=== PATIENT | male | born 1965 | race Caucasian/White ===

== ENCOUNTER 2019-09-03 12:54 | Inpatient (IN) | payer BC, SELFPAY ==
[2019-09-03] VITALS (50 sets, daily range): BP systolic 86–111; BP diastolic 37–70; PULSE 0–86; RESP 14–24; TEMP 36.8; O2SAT 93–99; BMI 34.5
--- NOTE | 2019-09-03 13:16 | W.ED.NAVMDI ---
HPI - Nausea/Vomiting/Diarrhea General: Chief complaint: Nausea/Vomiting/Diarrhea Stated complaint: Nausea, diarrhea, dizzy, fatigue Time Seen by Provider: 09/03/19 13:16 History of Present Illness: HPI Narrative: Pt states for 3 days he has had diarrhea whenever he eats or drinks, and had a fever of 102 the other night. Denies any vomiting but has had nausea and anorexia, He feels weak overall and has fallen but not passed out, no chest pain MD elicited complaint: nausea, diarrhea and abdominal pain Onset (ago): day(s) (3) Description of vomiting: none Description of diarrhea: watery Associated nausea: Yes Associated abdominal pain: Yes Location of pain: RLQ and LLQ Pain consistency: constant Severity: moderate Quality: cramping Exacerbating factors: eating Relieving factors: none Associated symtoms: Reports fatigue, fevers/chills, loss of apetite, malaise, myalgias and nausea; Denies anxiety, chest pain, dysuria or headache(s) Review of Systems General: Reports: 10 or more systems reviewed and unremarkable except in HPI and below Const: Reports: fever, chills, body aches, change in appetite, fatigue and malaise ENMT: Denies: throat pain Card: Denies: chest pain or swelling of feet/ankles Resp: Denies: shortness of breath or productive cough GI: Reports: abdominal pain, nausea and diarrhea; Denies: vomiting, constipation or painful bowel movements : Denies: flank pain, difficulty urinating or painful urination Musc: Denies: back pain or extremity swelling Skin/Breast: Denies: rash Neuro: Denies: headache, numbness in extremities or weakness in extremities Psych: Denies: anxiety or depression PFSH ED PFSH: Medical History (Updated 09/03/19 @ 18:11 by Soraya Pedraza DO) CAD (coronary artery disease) Cardiomyopathy CHF (congestive heart failure) Dilated LV, last EF 35%, grade 2 diastolic dysfunction from 2016 HTN (hypertension) LV (left ventricular) mural thrombus Status post left heart catheterization Surgical History (Updated 09/03/19 @ 17:18 by Kaushal Morocho MD) S/P ICD (internal cardiac defibrillator) procedure S/P wrist surgery Family History Other CAD (coronary artery disease) Hypertension Social History Smoking and tobacco status: never smoked Physical Exam Const: COMMON NORMALS: no apparent distress and oriented x3 GENERAL APPEARANCE: cooperative; not in distress HENMT: COMMON NORMALS: normocephalic HEAD & SCALP: normal to inspection and normocephalic MOUTH: oral and palatal mucosa normal and lip normal THROAT: posterior oropharynx normal and tonsils normal Neck/C-Spine: COMMON NORMALS: full ROM, no lymphadenopathy, supple and no meningeal signs GENERAL: Yes normal visual inspection and Yes trachea midline Chest: COMMONS NORMALS: inspection of chest normal (has pacer defib in place) Resp: COMMON NORMALS: normal respiratory effort and clear to auscultation bilaterally EFFORT & INSPECTION: Yes able to speak in complete sentences and No respiratory distress AUSCULTATION: clear to auscultation bilaterally, no rales, no rhonchi and no wheezes Cardio: COMMON NORMALS: regular rate, regular rhythm, S1 normal heart sound, S2 normal heart sound and no murmurs RATE: regular rate RHYTHM: regular rhythm HEART SOUNDS: S1 normal and S2 normal PERIPHERAL PULSES: radial pulses present and dorsalis pedis pulses present GI: COMMON NORMALS: soft to palpation INSPECTION: Yes normal to inspection AUSCULTATION: Yes hypoactive bowel sounds PALPATION: Yes soft and Yes tender Details: LLQ and RLQ RECTAL EXAM: Yes deferred : COMMON NORMALS: Yes no CVA tenderness BLADDER/KIDNEY EXAM: Yes no CVA tenderness Back/Pelvis: COMMON NORMALS: no CVA tenderness Extremity: COMMON NORMALS: normal to inspection, full ROM, normal capillary refill, no calf tenderness and no pedal edema Neuro: COMMON NORMALS: oriented x3, CN's II-XII intact bilaterally, moves all extremities and no focal motor deficits MENINGEAL SIGNS: Yes no meningeal signs Skin: COMMON NORMALS: no rashes or lesions noted GENERAL SKIN EXAM: no rashes or lesions noted Course Vital Signs: Vital signs: Vital Signs Temperature 98.2 F 09/03/19 13:09 Pulse Rate 70 09/03/19 17:30 Respiratory Rate 16 09/03/19 17:30 Blood Pressure 95/52 09/03/19 17:30 Pulse Oximetry 95 09/03/19 17:30 MDM - Nausea/Vomiting/Diarrhea MDM Narrative: Medical decision making narrative: Pt is in acute renal failure with bun of 59 and Cr of 5.3, he has a lipase of 251. 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, pt is still hypotensive at 87/48 so he will need to go to icu and Dr Morocho agrees, we are continuing iv fluids Lab Data: Labs: Lab Results 09/03/19 09/03/19 09/03/19 Range/Units 13:35 13:35 13:35 WBC 5.3 (4.0-10.0) 10^3/ uL RBC 4.22 (4.1-5.3) 10^6/u L Hgb 13.9 (11.7-16.6) g/dL Hct 42.5 (42.0-52.0) % MCV 100.7 H (80-94) fL MCH 32.9 (28.0-34.0) pg MCHC 32.7 (30.0-36.0) g/dL RDW 14.8 (12.1-15.1) % Plt Count 198 (130-400) 10^3/c mm MPV 11.2 H (7.4-10.4) fL Neut % (Auto) 73.5 % Lymph % (Auto) 13.6 % [place] % (Auto) 11.7 % Eos % (Auto) 0.6 % Baso % (Auto) 0.2 % Neut # (Auto) 3.9 (1.8-7.7) 10^3/u L Lymph # (Auto) 0.7 L (0.8-4.8) 10^3/u L [place] # (Auto) 0.6 (0.2-0.9) 10^3/u L Eos # (Auto) 0.0 (0.0-0.8) 10^3/u L Baso # (Auto) 0.0 (0.0-0.1) 10^3/u L Nucleated RBC % (a uto) 0 % Nucleated RBCs # 0.0 /100WBC Sodium 131 L (136-145) mmol/L Potassium 3.8 (3.5-5.1) mmol/L Chloride 94 L (98-107) mmol/L Carbon Dioxide 19 L (22-29) mmol/L Anion Gap 21.8 H (5-19) BUN 59 H (6-20) mg/dL Creatinine 5.3 H (0.7-1.2) mg/dL GFR Calculation 11.3 L (90-130) mL/min Glucose 182 H (65-115) mg/dL Calculated Osmolal ity 275 L (285-295) mOsm/k g Lactate 2.0 (0.5-2.2) mmol/L Calcium 9.0 (8.5-10.5) mg/dL Phosphorus (2.5-4.5) mg/dL Magnesium (1.7-2.3) mg/dL Total Bilirubin 0.3 (0.15-1.2) mg/dL AST 26 (0-40) U/L ALT 27 (0-41) U/L Alkaline Phosphata se 53 (40-130) IU/L NT-Pro-B Natriuret Pep (0-125) pg/mL Total Protein 7.4 (6.6-8.7) g/dL Albumin 3.8 (3.5-5.2) g/dL Globulin 3.6 (1.3-4.6) g/dL Lipase 251 H (13-60) U/L Procalcitonin (0-0.5) ng/mL TSH (0.27-4.20) uIU/ mL 09/03/19 Range/Units 13:35 WBC (4.0-10.0) 10^3/ uL RBC (4.1-5.3) 10^6/u L Hgb (11.7-16.6) g/dL Hct (42.0-52.0) % MCV (80-94) fL MCH (28.0-34.0) pg MCHC (30.0-36.0) g/dL RDW (12.1-15.1) % Plt Count (130-400) 10^3/c mm MPV (7.4-10.4) fL Neut % (Auto) % Lymph % (Auto) % [place] % (Auto) % Eos % (Auto) % Baso % (Auto) % Neut # (Auto) (1.8-7.7) 10^3/u L Lymph # (Auto) (0.8-4.8) 10^3/u L [place] # (Auto) (0.2-0.9) 10^3/u L Eos # (Auto) (0.0-0.8) 10^3/u L Baso # (Auto) (0.0-0.1) 10^3/u L Nucleated RBC % (a uto) % Nucleated RBCs # /100WBC Sodium (136-145) mmol/L Potassium (3.5-5.1) mmol/L Chloride (98-107) mmol/L Carbon Dioxide (22-29) mmol/L Anion Gap (5-19) BUN (6-20) mg/dL Creatinine (0.7-1.2) mg/dL GFR Calculation (90-130) mL/min Glucose (65-115) mg/dL Calculated Osmolal ity (285-295) mOsm/k g Lactate (0.5-2.2) mmol/L Calcium (8.5-10.5) mg/dL Phosphorus 5.0 H (2.5-4.5) mg/dL Magnesium 2.6 H (1.7-2.3) mg/dL Total Bilirubin (0.15-1.2) mg/dL AST (0-40) U/L ALT (0-41) U/L Alkaline Phosphata se (40-130) IU/L NT-Pro-B Natriuret Pep 295 H (0-125) pg/mL Total Protein (6.6-8.7) g/dL Albumin (3.5-5.2) g/dL Globulin (1.3-4.6) g/dL Lipase (13-60) U/L Procalcitonin 7.03 H (0-0.5) ng/mL TSH 2.13 (0.27-4.20) uIU/ mL Imaging Data^: CT Abd/Pel: Radiologist's impression: [place] [address] CT Scan Report Signed Patient: Diane De Paz Jr #: [id number] : 1965Acct#:[id number] Age/Sex: 54 / MADM Date: 09/03/19 Loc: ERRoom/Bed: Attending Dr: Ordering Provider/Ordering MD: Soraya Pedraza DO Date of Service: 09/03/19 Procedure(s): CT abdomen pelvis w con* [id number] Accession Number(s): [id number] Report Number: [id number] WS: [id number] CT ABDOMEN AND PELVIS WITH CONTRAST HISTORY: Abdominal pain with nausea, vomiting and diarrhea. Fever. TECHNIQUE: Imaging performed of the abdomen and pelvis with IV contrast. Single phase imaging of the abdomen. Coronal and sagittal reformats are submitted. All CT scans at [facility] use at least one of these dose optimization techniques: automated exposure control; mA and/or kV adjustment per patient size (includes targeted exams where dose is matched to clinical indication); or iterative reconstruction. IV CONTRAST: Omnipaque 300; 95 mL IV. Oral contrast: No DLP: 1971.81 mGy.cm COMPARISON: 05/12/2014 Lower thorax: Lung bases are clear. Normal size heart. Soft tissue mass at the LEFT ventricle apex measures 3.8 x 2.0 cm and is most likely thrombus. May be an area of infarction. This was not present on the study of September 2014. No hiatal hernia. Liver/biliary system: Normal size with no intrahepatic dilatation. Gallbladder: Normally distended gallbladder with numerous stones. No adjacent wall thickening or pericholecystic fluid. Pancreas: Normal. Spleen: Normal spleen with granulomata. Adrenal glands: Normal. Right kidney: Normal. Left kidney: Normal. Aorta: Normal. Mild misting within the central mesentery. There are a few small lymph nodes. Unchanged since 05/12/2014. Lymphadenopathy: Small mesenteric lymph nodes measure less than a centimeter and unchanged since 05/12/2014. Lymph nodes are within the area of mesenteric diverticulitis. Free fluid: None. GI tract: Normal appendix. There is mild thickening of the descending and sigmoid colon Abdominal wall: Unremarkable abdominal wall. No hernia. Pelvis: Small bilateral inguinal hernias containing fat only. Bones: Unremarkable. CT/CT abdomen pelvis w con* [id number] IMPRESSION: 1. LEFT ventricular apical thrombus suspected. Recommend follow-up echocardiogram. 2. Mild stable mesenteric panniculitis. 3. Normal appendix. 4. Cholelithiasis. No evidence for acute cholecystitis. Dictated By:Kim Santoro DO Vascular: Radiologist's impression: [address] [address] Ultrasound Report Signed Patient: Diane De Paz Jr #: [id number] : 1965Acct#:[id number] Age/Sex: 54 / MADM Date: 09/03/19 Loc: ERRoom/Bed: Attending Dr: Ordering Provider/Ordering MD: Soraya Pedraza DO Date of Service: 09/03/19 Procedure(s): CV echo complete* [id number] Accession Number(s): [id number] Report Number: [id number] Diane De Paz Jr Age: 54 Gender: M : 1965 Exam Date: 09/03/2019 16:23 Ordering Phys: Soraya Pedraza DO Technologist: Shen Potter Exam Location: [facility] [place] Indication: THROMBUS LV APEX ON CT BP: 93 / 57 HR: 64 Rhythm: Sinus Technical Quality: Fair MEASUREMENTS (Male / Female) Normal Values 2D ECHO LV Diastolic Diameter PLAX 3.6 cm 4.2 - 5.9 / 3.9 - 5.3 cm LV Systolic Diameter PLAX 2.9 cm IVS Diastolic Thickness 0.9 cm 0.6 - 1.0 / 0.6 - 0.9 cm IVS Systolic Thickness 1.8 cm LVPW Diastolic Thickness 1.2 cm 0.6 - 1.0 / 0.6 - 0.9 cm LVPW Systolic Thickness 1.3 cm LVOT Diameter 2.0 cm LV Ejection Fraction 2D Teich 40.5 % LV Ejection Fraction MOD 2C 47.5 % LV Ejection Fraction 2C AL 48.3 % LA Diameter 4.2 cm LA Width 3.3 cm LA Height 4.0 cm RA Width 3.3 cm RA Height 4.3 cm Aorta at Sinotubular Diameter 3.0 cm M-MODE LV Diastolic Diameter MM 5.2 cm 4.2 - 5.9 / 3.9 - 5.3 cm LV Systolic Diameter MM 4.5 cm LV Ejection Fraction MM Teich 26.8 % IVS Diastolic Thickness MM 0.8 cm 0.6 - 1.0 / 0.6 - 0.9 cm IVS Systolic Thickness MM 1.5 cm LVPW Diastolic Thickness MM 1.2 cm 0.6 - 1.0 / 0.6 - 0.9 cm LVPW Systolic Thickness MM 1.7 cm RV Diastolic Diameter MM 1.1 cm Aortic Annulus Diameter 3.2 cm LA Ao Ratio MM 1.3 MV E Point Septal Separation 0.9 cm DOPPLER AV Peak Velocity 104.0 cm/s LVOT Peak Velocity 74.0 cm/s AV Area Cont Eq vti 2.0 cm squared AV Area Cont Eq pk 2.3 cm squared MV Area PHT 5.0 cm squared Mitral E to A Ratio 0.9 MV E' Velocity 8.0 cm/s Mitral E to MV E' Ratio 7.2 Mitral E to LV E' Lateral Ratio 7.7 Mitral E to LV E' Septal Ratio 6.8 TR Peak Velocity 181.0 cm/s TR Peak Gradient 13.1 mmHg TV Peak E Velocity 74.0 cm/s Right Atrial Pressure 3.0 mmHg Pulmonary Artery Systolic Pressu 16.1 mmHg PV Peak Velocity 111.0 cm/s FINDINGS Left Ventricle Normal left ventricular cavity size. Moderately decreased left ventricular systolic function. Left ventricular ejection fraction is estimated at 40 %. There appeared to be distal anterior septal , distal lateral and apical akinesis. There is 2 x 2 centimeter apical mass most consistent with thrombus visualized.. Right Ventricle The right ventricle is normal in size and function. Right Atrium The right atrium is normal in size. Left Atrium The left atrium is normal in size. Mitral Valve Structurally normal mitral valve without significant stenosis or prolapse. There is no mitral regurgitation. Aortic Valve Structurally normal aortic valve without significant sclerosis or stenosis. There is no aortic regurgitation. Tricuspid Valve Structurally normal tricuspid valve without significant stenosis or regurgitation. Pulmonary artery systolic pressure is normal. Pulmonic Valve Structurally normal pulmonic valve without significant stenosis. There is no pulmonic regurgitation. Pericardium Normal pericardium without effusion. Aorta Normal ascending aorta dimension. CONCLUSIONS 1-Normal left ventricular cavity size. Moderately decreased left ventricular systolic function. Left ventricular ejection fraction is estimated at 40 %. There appeared to be distal anterior septal distal lateral and apical akinesis. There is 2 x 2 centimeter apical mass most consistent with thrombus visualized.. 2-There is no pericardial effusion. 3-No significant valve abnormalities. 4-Pulmonary artery systolic pressure is within normal limits. 5-Right atrial pressure is around 5 mm of mercury. 6-when compared to the prior echocardiogram dated 07/14/2014 there appeared to be apical left ventricle thrombus now Ilia Valero MD (Electronically Signed) Final Date: 03 Sep 2019 17:24 S Discharge Plan Discharge Patient Disposition: Admitted As Inpatient Admit Provider: Kaushal Morocho Clinical Impression: Acute kidney injury, Gastroenteritis, Dehydration, Mesenteric panniculitis, Acute hypotension Pancreatitis, acute Qualifiers: Pancreatitis type: unspecified pancreatitis type Acute pancreatitis complication: no infection or necrosis Qualified Code(s): K85.90 - Acute pancreatitis without necrosis or infection, unspecified Condition: Stable Referrals: Ilia Valero MD [Primary Care Provider] - Coding Level of Care Code ED Speech And Language Specialist for Chg Fwd Exam Comprehensive
--- NOTE | 2019-09-03 13:24 | CT_ITS ---
WS: [id number] CT ABDOMEN AND PELVIS WITH CONTRAST HISTORY: Abdominal pain with nausea, vomiting and diarrhea. Fever. TECHNIQUE: Imaging performed of the abdomen and pelvis with IV contrast. Single phase imaging of the abdomen. Coronal and sagittal reformats are submitted. All CT scans at [facility] use at least one of these dose optimization techniques: automated exposure control; mA and/or kV adjustment per patient size (includes targeted exams where dose is matched to clinical indication); or iterativ e reconstruction. IV CONTRAST: Omnipaque 300; 95 mL IV. Oral contrast: No DLP: 1971.81 mGy.cm COMPARISON: 05/12/2014 Lower thorax: Lung bases are clear. Normal size heart. Soft tissue mass at the LEFT ventricle apex me asures 3.8 x 2.0 cm and is most likely thrombus. May be an area of infarction. This was not present o n the study of September 2014. No hiatal hernia. Liver/biliary system: Normal size with no intrahepatic dilatation. Gallbladder: Normally distended gallbladder with numerous stones. No adjacent wall thickening or raoul cholecystic fluid. Pancreas: Normal. Spleen: Normal spleen with granulomata. Adrenal glands: Normal. Right kidney: Normal. Left kidney: Normal. Aorta: Normal. Mild misting within the central mesentery. There are a few small lymph nodes. Unchanged since 5. Lymphadenopathy: Small mesenteric lymph nodes measure less than a centimeter and unchanged since 2014. Lymph nodes are within the area of mesenteric diverticulitis. Free fluid: None. GI tract: Normal appendix. There is mild thickening of the descending and sigmoid colon Abdominal wall: Unremarkable abdominal wall. No hernia. Pelvis: Small bilateral inguinal hernias containing fat only. Bones: Unremarkable. CT/CT abdomen pelvis w con* [id number] IMPRESSION: 1. LEFT ventricular apical thrombus suspected. Recommend follow-up echocardiog benito. 2. Mild stable mesenteric panniculitis. 3. Normal appendix. 4. Cholelithiasis. No evidence for acute cholecystitis.
[2019-09-03] MEDS: ondansetron 2 mg/ML SDV 2 mL 4 MG IVP (13:33)
[2019-09-03] MEDS: sodium chloride 0.9% 1,000 ML 999 ML IV ×2 (13:33→17:26)
[2019-09-03 13:51] LABS: Basophils % 0.2 %; Eosinophils % 0.6 %; Hematocrit 42.5 % (42.0-52.0); Hemoglobin 13.9 g/dL (11.7-16.6); Lymphocytes # 0.7 10^3/uL (0.8-4.8); Lymphocytes % 13.6 %; Mean Corpuscular HGB Conc 32.7 g/dL (30.0-36.0); Mean Corpuscular Hemoglobin 32.9 pg (28.0-34.0); Mean Corpuscular Volume 100.7 fL (80-94); Mean Platelet Volume 11.2 fL (7.4-10.4); Monocytes # 0.6 10^3/uL (0.2-0.9); Monocytes % 11.7 %; Neutrophils # 3.9 10^3/uL (1.8-7.7); Neutrophils % 73.5 %; Nucleated Red Blood Cells % 0 %; Platelet Count 198 10^3/cmm (130-400); Red Blood Count 4.22 10^6/uL (4.1-5.3); Red Cell Distribution Width 14.8 % (12.1-15.1); White Blood Count 5.3 10^3/uL (4.0-10.0)
[2019-09-03] MEDS: iohexol 300 mg/mL 100 mL Btl IV (14:05)
[2019-09-03 14:15] LABS: Alanine Aminotransferase 27 U/L (0-41); Albumin Level 3.8 g/dL (3.5-5.2); Alkaline Phosphatase 53 IU/L (40-130); Anion Gap 21.8 (5-19); Aspartate Amino Transferase 26 U/L (0-40); Blood Urea Nitrogen 59 mg/dL (6-20); Carbon Dioxide 19 mmol/L (22-29); Chloride 94 mmol/L (98-107); Globulin 3.6 g/dL (1.3-4.6); Glomerular Filtration Rate 11.3 mL/min (90-130); Glucose 182 mg/dL (65-115); Lipase 251 U/L (13-60); Osmolality Calculated 275 mOsm/kg (285-295); Potassium 3.8 mmol/L (3.5-5.1); Sodium 131 mmol/L (136-145); Total Bilirubin 0.3 mg/dL (0.15-1.2); Total Protein 7.4 g/dL (6.6-8.7)
[2019-09-03 14:20] LABS: Slide Review Slide Review Perform
--- NOTE | 2019-09-03 16:02 | USCV_ITS ---
Diane De Paz Jr Age: 54 Gender: M : 1965 Exam Date: 09/03/2019 16:23 Ordering Phys: Soraya Pedraza DO Technologist: Shen Potter Exam Location: [facility] [place] Indication: THROMBUS LV APEX ON CT BP: 93 / 57 HR: 64 Rhythm: Sinus Technical Quality: Fair MEASUREMENTS (Male / Female) Normal Values 2D ECHO LV Diastolic Diameter PLAX 3.6 cm 4.2 - 5.9 / 3.9 - 5.3 cm LV Systolic Diameter PLAX 2.9 cm IVS Diastolic Thickness 0.9 cm 0.6 - 1.0 / 0.6 - 0.9 cm IVS Systolic Thickness 1.8 cm LVPW Diastolic Thickness 1.2 cm 0.6 - 1.0 / 0.6 - 0.9 cm LVPW Systolic Thickness 1.3 cm LVOT Diameter 2.0 cm LV Ejection Fraction 2D Teich 40.5 % LV Ejection Fraction MOD 2C 47.5 % LV Ejection Fraction 2C AL 48.3 % LA Diameter 4.2 cm LA Width 3.3 cm LA Height 4.0 cm RA Width 3.3 cm RA Height 4.3 cm Aorta at Sinotubular Diameter 3.0 cm M-MODE LV Diastolic Diameter MM 5.2 cm 4.2 - 5.9 / 3.9 - 5.3 cm LV Systolic Diameter MM 4.5 cm LV Ejection Fraction MM Teich 26.8 % IVS Diastolic Thickness MM 0.8 cm 0.6 - 1.0 / 0.6 - 0.9 cm IVS Systolic Thickness MM 1.5 cm LVPW Diastolic Thickness MM 1.2 cm 0.6 - 1.0 / 0.6 - 0.9 cm LVPW Systolic Thickness MM 1.7 cm RV Diastolic Diameter MM 1.1 cm Aortic Annulus Diameter 3.2 cm LA Ao Ratio MM 1.3 MV E Point Septal Separation 0.9 cm DOPPLER AV Peak Velocity 104.0 cm/s LVOT Peak Velocity 74.0 cm/s AV Area Cont Eq vti 2.0 cm squared AV Area Cont Eq pk 2.3 cm squared MV Area PHT 5.0 cm squared Mitral E to A Ratio 0.9 MV E' Velocity 8.0 cm/s Mitral E to MV E' Ratio 7.2 Mitral E to LV E' Lateral Ratio 7.7 Mitral E to LV E' Septal Ratio 6.8 TR Peak Velocity 181.0 cm/s TR Peak Gradient 13.1 mmHg TV Peak E Velocity 74.0 cm/s Right Atrial Pressure 3.0 mmHg Pulmonary Artery Systolic Pressu 16.1 mmHg PV Peak Velocity 111.0 cm/s FINDINGS Left Ventricle Normal left ventricular cavity size. Moderately decreased left ventricular systolic function. Left ventricular ejection fraction is estimated at 40 %. There appeared to be distal anterior septal , distal lateral and apical akinesis. There is 2 x 2 centimeter apical mass most consistent with thrombus visualized.. Right Ventricle The right ventricle is normal in size and function. Right Atrium The right atrium is normal in size. Left Atrium The left atrium is normal in size. Mitral Valve Structurally normal mitral valve without significant stenosis or prolapse. There is no mitral regurgitation. Aortic Valve Structurally normal aortic valve without significant sclerosis or stenosis. There is no aortic regurgitation. Tricuspid Valve Structurally normal tricuspid valve without significant stenosis or regurgitation. Pulmonary artery systolic pressure is normal. Pulmonic Valve Structurally normal pulmonic valve without significant stenosis. There is no pulmonic regurgitation. Pericardium Normal pericardium without effusion. Aorta Normal ascending aorta dimension. CONCLUSIONS 1-Normal left ventricular cavity size. Moderately decreased left ventricular systolic function. Left ventricular ejection fraction is estimated at 40 %. There appeared to be distal anterior septal distal lateral and apical akinesis. There is 2 x 2 centimeter apical mass most consistent with thrombus visualized.. 2-There is no pericardial effusion. 3-No significant valve abnormalities. 4-Pulmonary artery systolic pressure is within normal limits. 5-Right atrial pressure is around 5 mm of mercury. 6-when compared to the prior echocardiogram dated 07/14/2014 there appeared to be apical left ventricle thrombus now Ilia Valero MD (Electronically Signed) Final Date: 03 Sep 2019 17:24 S
--- NOTE | 2019-09-03 17:15 | P.HP_ITS ---
Providers/Chief Complaint Primary Care Provider: Ilia Valero MD Chief Complaint: knee pain History of Present Illness Diane De Paz Jr is a 54 year old male with past medical history of hypertension, hyperlipidemia, morbid obesity, CAD, cardiomyopathy, congestive heart failure of diastolic and systolic type, post AICD implantation came into the ER today because of feeling weak and dizziness. Patient states he has been having runny nose, flulike symptoms for last 1 week along with fever going up to 102 Fahrenheit a week ago. Patient states for this he was seen at [facility] and flu a and B was tested and was negative. For last 3 days he has been having abdominal pain along with nausea but no vomiting and multiple episodes of diarrhea for last 3 days. He has been feeling weak, dizziness since last night but symptoms persisted so he presented to the ER. Symptoms are also associated with generalized abdominal pain. Fever associated with chills and is usually intermittent. Bowel movement were watery till today morning but are now semi- formed. He also has noticed blood once in his bowel movement yesterday but if not present anymore today. He denies of having any hematemesis, dysuria, dizziness, headache, difficulty breathing, palpitations. 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 He denies of having traveled recently outside [place] in last 2 months. In the ER and presentation he was found to have hypotension with blood pressure going into 80 systolic so IV fluid was given and his blood pressure improved to [address] abdomen was done which was consistent with mesenteric pancolitis but was also consistent with a possible LV thrombus. Blood work done showed hyponatremia with creatinine of 5.3 and he was in metabolic acidosis. Review of Systems Const: Reports: fever, chills, body aches and malaise; Denies: change in appetite, night sweats, diaphoresis, change in sleep pattern, daytime sleepiness or snoring Eyes: Denies: change in vision, blurry vision, photophobia, eye discomfort or eye discharge ENMT: Denies: throat pain, enlarged tonsils, hoarseness, mouth pain, oral sores/lesions, dry mouth, tinnitus, nasal congestion or post nasal drip Card: Reports: palpitations; Denies: chest pain, irregular heart rhythm, edema, swelling of feet/ankles, lightheadedness, syncope, pre-syncope, shortness of breath on exertion, shortness of breath when lying down, leg pain with exertion or bluish discoloration of hands/feet Resp: Reports: non-productive cough; Denies: shortness of breath, productive cough, wheezing, stridor, pain on inspiration, change in phlegm color, coughing up blood or chest congestion GI: Reports: abdominal pain, nausea and diarrhea; Denies: vomiting, vomiting blood, coffee grounds in vomit, difficulty swallowing, heartburn/indigestion, constipation, bloating, cramping, change in bowel habits, painful bowel movements, blood in stool or black tarry stool : Denies: flank pain, difficulty urinating, painful urination, urinary frequency, urinary urgency, urinary hesitancy, urinary dribbling, difficulty starting urination, change in urine stream, nighttime urination or blood in urine Musc: Denies: neck pain, back pain, extremity pain, joint pain, joint swelling, redness, joint stiffness or limited range of motion Neuro: Denies: headache, numbness in extremities, weakness in extremities, changes in sensation, lack of coordination, difficulty walking, frequent falls, dizziness, vertigo, confusion, slurred speech, difficulty communicating thoughts or seizure-like activity Psych: Denies: anxiety, depression, mood swings, panic attacks, hopelessness or irritability Endo: Denies: excessive urination, excessive thirst, tired all the time, cold intolerance, excessive sweating, flushing or heat intolerance Charan/Lymph: Denies: easy bruising or easy bleeding All/Imm: Denies: tongue swelling, facial swelling or acute wheezing Medications/Allergies Home Medications Medication Instructions Recorded Confirmed Last Taken Type aspirin 325 mg tablet 325 mg PO DAILY 07/09/19 07/09/19 Unknown History carvedilol 25 mg tablet 37.5 mg PO BID tab 07/09/19 07/09/19 Unknown History nitroglycerin 0.4 mg sublingual 0.4 mg SUBLINGUAL Q5M PRN 07/09/19 07/09/19 Unknown History tablet potassium chloride 10 mEq 10 meq PO DAILY 07/09/19 07/09/19 Unknown History tablet,extended release(part/cryst) simvastatin 40 mg tablet 40 mg PO DAILY 07/09/19 07/09/19 Unknown History furosemide 20 mg tablet 20 mg PO DAILY #90 tab 08/20/19 Unknown Rx lisinopril 20 mg tablet 20 mg PO DIRECTED 90 Days #135 08/24/19 Unknown Rx tab Allergies Allergy/AdvReac Type Severity Reaction Status Date / Time No Known Allergies Allergy Unverified 07/09/19 07:58 PFSH Acute PFSH: Medical History (Updated 09/03/19 @ 18:03 by Kaushal Morocho MD) CAD (coronary artery disease) Cardiomyopathy CHF (congestive heart failure) Dilated LV, last EF 35%, grade 2 diastolic dysfunction from 2016 HTN (hypertension) LV (left ventricular) mural thrombus Status post left heart catheterization Surgical History (Updated 09/03/19 @ 17:18 by Kaushal Morocho MD) S/P ICD (internal cardiac defibrillator) procedure S/P wrist surgery Family History Other CAD (coronary artery disease) Hypertension Social History Smoking and tobacco status: never smoked Vitals/I&O/Wt Last Vital Signs Temp 98.2 F 09/03/19 13:09 Pulse 65 09/03/19 15:05 Resp 16 09/03/19 15:05 BP 93/37 09/03/19 15:05 Pulse Ox 98 09/03/19 15:05 Weight last 48 hrs Weight 115.666 kg Physical Exam Narrative: EXAM NARRATIVE: General: No acute distress, AO x3, morbidly obese, dehydrated HEENT: PERRLA, pupils bilaterally equal and reactive Chest: Normal vesicular breath sounds, no added sounds, equal good air entry bilaterally, fine crackles present bilateral bases CVS: S1-S2 regular, pansystolic murmur at the apex, no tachycardia, no gallops, no rubs Abdomen: Soft, nontender, no organomegaly, bowel sounds present Neuro: No focal deficits, no facial deformity, AO x3, power 5/5 in all limbs Data : 09/03/19 13:35 09/03/19 13:35 Micro: Microbiology 09/03/19 13:40 Blood Culture - Preliminary Blood SPECIMEN COLLECTED 09/03/19 13:35 Blood Culture - Preliminary Blood SPECIMEN COLLECTED A&P Assessment and plan (1) Shock: Status: Acute (2) Acute hypotension: Status: Acute (3) LV (left ventricular) mural thrombus: Status: Acute (4) Mesenteric panniculitis: Status: Acute (5) Dehydration: Status: Acute (6) Gastroenteritis: Status: Acute (7) Acute kidney injury: Status: Acute (8) Cardiomyopathy: Status: Acute (9) S/P ICD (internal cardiac defibrillator) procedure: Status: Acute (10) HTN (hypertension): Status: Acute (11) CAD (coronary artery disease): Status: Acute Additional A&P Information Shock: Most likely because of hypovolemia versus possible sepsis. Patient is tachycardic, hypotensive with organ dysfunction. Admit to ICU. Echocardiogram shows compressible IVC. Normal saline at 75 cc/h. Keep mean arterial pressure over 65 mmHg. Blood cultures, MRSA swab, stool studies to rule out C. difficile, enteric panel. Ciprofloxacin and Flagyl both renally dosed. If patient persistently remains hypotensive or has high-grade fever will add on vancomycin. Check stool studies to rule out C. difficile, enteric panel. Given the symptoms cannot rule out COVID-19. Will check for the same. Isolation for now. Cardiomyopathy: Compensated systolic and diastolic congestive heart failure: We will monitor closely for hypotension, fluid overload. We will hold off on home dose of lisinopril, Lasix, carvedilol for now. We will put on IV Lopressor 5 mg every 6 hours as needed for heart rate of more than 110 bpm when systolic blood pressure is more than 110 mmHg. LV thrombus: Patient is not aware of of the same. As his creatinine is elevated we will start him on heparin drip without bolus. Patient would most likely need to be bridged over to anticoagulation at least for 6 months. We will consult cardiology for further assistance. MIHAELA: Most likely because of severe dehydration because of diarrhea, sepsis and patient being on Lasix and lisinopril. Will Mayen catheterized for strict input output charting. Medical reconciliation done for nephrotoxic drugs. Check urine electrolytes, urine creatinine, urine eosinophils. We will check BMP daily. Metabolic acidosis: Most likely because of severe MIHAELA. We will try to correct the underlying problem and continue to monitor. Patient does not need any bicarb for now. Heparin drip. Full code. Cardiac diet, low-salt diet. Admit to ICU. Attestations Medical Necessity Statement*: More than 2 midnights for shock, severe diarrhea, LV thrombus, MIHAELA Critical Care Time: Critical Care Time (min): 80 Coding Level of Care Code Acute Machine Heel Seat Fitter for Chg Fwd Diagnoses Shock R57.9 Acute hypotension I95.9 LV (left ventricular) mural thrombus I51.3 Mesenteric panniculitis K65.4 Dehydration E86.0 Gastroenteritis K52.9 Acute kidney injury N17.9 Cardiomyopathy I42.9 S/P ICD (internal cardiac defibrillator) procedure Z95.810 HTN (hypertension) I10 CAD (coronary artery disease) I25.10
[2019-09-03] MEDS: famotidine 20 mg/2 mL INJ IVP (17:27)
[2019-09-03] MEDS: metroNIDAZOLE IV 500 MG/100 ML PREMIX 100 MG IV (17:28)
[2019-09-03 17:56] LABS: Magnesium 2.6 mg/dL (1.7-2.3); NT Pro B Type Natriuretic Pept 295 pg/mL (0-125); Thyroid Stimulating Hormone 2.13 uIU/mL (0.27-4.20)
[2019-09-03 18:33] LABS: Glucose Urine UA Norm (Normal); Ketones Urine Negative (Negative); Protein Urine Neg (Negative); Specific Gravity, Urine 1.015 (1.005-1.030); Urine Appearance Clear (CLEAR); Urine Color Yellow (Yellow); pH Urine 5 (5-7)
[2019-09-03 18:34] LABS: Bilirubin Urine Neg (NEGATIVE); Blood Urine Neg (Negative); Leukocyte Esterase Urine Negative (Negative); Nitrate Urine Negative (Negative); Urobilinogen Urine Norm (Negative)
[2019-09-03 19:17] LABS: Procalcitonin 7.03 ng/mL (0-0.5)
--- NOTE | 2019-09-03 21:00 | PC.NURSE ---
2100 [facility] monitoring done at tis time. svi change is 22.1% svi 51 ci 3.8 hr 70 . pt vss per cm. pt denies sob or distress. elsy.
[2019-09-03] MEDS: sodium chloride 0.9% 1,000 ML 75 ML IV (21:03)
--- NOTE | 2019-09-03 22:02 | PC.NURSE ---
Addendum entered by Genoveva Fraser RN 09/04/19 00:44: pt refuses agrawal placement , pt is also ambulatory andwill be on heparin gtt for vte scds not placed at this time for pt comfort. Original Note: 2038 rcvd pt via wc from ed. pt a&o x 4 answers admit questions appropriately . vss per cm. pt denies pain. reports diarrhea for a few days . pt denies nausea at this time. nicom testing done at tis time . 20 ga piv to right ac c ns @ 75 cc/hr 20 ga piv started to right hand . pt tolerated c no complaints. pt has multiple scraches , cuts, and bruises on upper and lower ext [place]. assessment per flowsheet. Blade fraser.
[2019-09-03 22:28] LABS: Partial Thromboplastin Time 29.7 SECONDS (23.9-36.7)
[2019-09-03 22:31] LABS: INR 1.13 (0.8-1.2)
[2019-09-03] MEDS: heparin drip 25,000 UNIT/500 ML PREMIX 32.4 UNIT IV (22:47)
--- NOTE | 2019-09-03 23:12 | PC.NURSE ---
heparin gtt started per md order. order for ptt at 0500 . stool sent to lab simon varghese.
[2019-09-04] VITALS (63 sets, daily range): BP systolic 93–145; BP diastolic 49–79; PULSE 65–92; RESP 13–25; TEMP 36.5–36.8; O2SAT 93–98; BMI 34.5
--- NOTE | 2019-09-04 01:16 | PC.NURSE ---
pt oob at this time to bsc. 1000 cc dark green foul smelling liquid stool noted. pt voided c stool unable to collect urine specimen . elsy
[2019-09-04] MEDS: famotidine 20 mg/2 mL INJ IVP ×2 (04:45→17:08)
[2019-09-04] MEDS: sodium chloride 0.9% 1,000 ML 75 ML IV (04:46)
[2019-09-04] MEDS: metroNIDAZOLE IV 500 MG/100 ML PREMIX 100 MG IV ×3 (04:46→19:54)
[2019-09-04 05:24] LABS: Eosinophils % 0.5 %; Hematocrit 36.6 % (42.0-52.0); Hemoglobin 12.5 g/dL (11.7-16.6); Lymphocytes # 1.2 10^3/uL (0.8-4.8); Lymphocytes % 22.2 %; Mean Corpuscular HGB Conc 34.2 g/dL (30.0-36.0); Mean Corpuscular Hemoglobin 34.2 pg (28.0-34.0); Mean Platelet Volume 10.2 fL (7.4-10.4); Monocytes # 0.8 10^3/uL (0.2-0.9); Monocytes % 14.3 %; Neutrophils # 3.5 10^3/uL (1.8-7.7); Neutrophils % 62.6 %; Nucleated Red Blood Cells % 0 %; Platelet Count 203 10^3/cmm (130-400); Red Blood Count 3.66 10^6/uL (4.1-5.3); Red Cell Distribution Width 14.6 % (12.1-15.1); White Blood Count 5.6 10^3/uL (4.0-10.0)
[2019-09-04 05:39] LABS: Partial Thromboplastin Time 67.3 SECONDS (23.9-36.7)
[2019-09-04 05:51] LABS: Alanine Aminotransferase 22 U/L (0-41); Albumin Level 3.4 g/dL (3.5-5.2); Alkaline Phosphatase 51 IU/L (40-130); Anion Gap 19.7 (5-19); Aspartate Amino Transferase 22 U/L (0-40); Blood Urea Nitrogen 53 mg/dL (6-20); Calcium 8.6 mg/dL (8.5-10.5); Carbon Dioxide 16 mmol/L (22-29); Chloride 103 mmol/L (98-107); Globulin 3.7 g/dL (1.3-4.6); Glomerular Filtration Rate 23.6 mL/min (90-130); Glucose 124 mg/dL (65-115); Osmolality Calculated 280 mOsm/kg (285-295); Potassium 3.7 mmol/L (3.5-5.1); Sodium 135 mmol/L (136-145); Total Bilirubin 0.3 mg/dL (0.15-1.2); Total Protein 7.1 g/dL (6.6-8.7)
[2019-09-04 07:44] LABS: Add Urine Microscopic? YES
[2019-09-04 08:04] LABS: Potassium, Radom Urine 31 mmol/L; Urine Creatinine 339 mg/dL (39-259)
[2019-09-04 08:08] LABS: Bacteria Urine 1+; Calcium Oxalate Crystals Urine 0-4 /hpf; Hyaline Casts Urine RARE; Other Crystals Urine TALC /hpf; WBC Urine 0-4 /hpf (0-5)
[2019-09-04 08:09] LABS: Add Urine Culture? No
[2019-09-04 08:19] LABS: Urine Random Sodium 16 mmol/L
[2019-09-04 08:36] LABS: Urine Random Chloride < 20 mmol/L
[2019-09-04] MEDS: atorvastatin 40 mg Tablet 20 MG PO (09:33)
[2019-09-04] MEDS: aspirin 325 mg Tablet PO (09:33)
[2019-09-04] MEDS: ciprofloxacin 400 MG/200 ML PREMIX 200 MG IV ×2 (09:34→22:35)
--- NOTE | 2019-09-04 09:45 | PM.PN ---
Subjective Subjective: Interval history: No acute events overnight. Patient has had only 1 episodes of diarrhea since admission. Sitting comfortably in bed. Denies having any nausea, vomiting, headache, palpitations. Labs, vitals noted. COVID-19 testing pending. Vitals/I&O/Wt Last Vital Signs Temp 98.2 F 09/03/19 13:09 Pulse 72 09/04/19 08:00 Resp 17 09/04/19 08:00 BP 114/69 09/04/19 08:00 Pulse Ox 97 09/04/19 08:00 09/03/19 09/04/19 09/04/19 22:59 06:59 14:59 Intake Total 2100 / 2100 1078.75 / 3178.75 240 / 240 Output Total 500 / 500 2500 / 3000 300 / 300 Balance 1600 / 1600 -1421.25 / 178.75 -60 / -60 Weight last 48 hrs Weight 115.666 kg Weight 115.666 kg Physical Exam Narrative: EXAM NARRATIVE: General: No acute distress, AO x3, morbidly obese, dehydrated HEENT: PERRLA, pupils bilaterally equal and reactive Chest: Normal vesicular breath sounds, no added sounds, equal good air entry bilaterally, fine crackles present bilateral bases CVS: S1-S2 regular, pansystolic murmur at the apex, no tachycardia, no gallops, no rubs Abdomen: Soft, nontender, no organomegaly, bowel sounds present Neuro: No focal deficits, no facial deformity, AO x3, power 5/5 in all limbs Data : 09/04/19 04:54 09/04/19 04:54 Micro: Microbiology 09/03/19 23:16 Occult Blood (FIT) - Final Stool 09/03/19 23:16 Stool Lactoferrin - Final Stool 09/03/19 13:40 Blood Culture - Preliminary Blood SPECIMEN COLLECTED 09/03/19 13:35 Blood Culture - Preliminary Blood SPECIMEN COLLECTED A&P Assessment and plan (1) Campylobacter enteritis: Status: Acute (2) Shock: Status: Acute (3) Acute hypotension: Status: Acute (4) LV (left ventricular) mural thrombus: Status: Acute (5) Mesenteric panniculitis: Status: Acute (6) Dehydration: Status: Acute (7) Acute kidney injury: Status: Acute (8) Cardiomyopathy: Status: Acute (9) S/P ICD (internal cardiac defibrillator) procedure: Status: Acute (10) HTN (hypertension): Status: Acute (11) CAD (coronary artery disease): Status: Acute Additional A&P Information Shock: Most likely because of hypovolemia versus possible sepsis. Resolved. Patient is tachycardic, hypotensive with organ dysfunction. Keep mean arterial pressures over 65. Continue with normal saline at 75 cc/h for now. Gastroenteritis/mesenteric panniculitis: Stool studies consistent with Campylobacter. Discussed with the patient and family that they need to get well water checked which they consume at home for possible contamination. For now continue with ciprofloxacin and Flagyl at current dose. Given the symptoms cannot rule out COVID-19. Will check for the same. Isolation for now. Cardiomyopathy: Post AICD. Compensated systolic and diastolic congestive heart failure: Echocardiogram done yesterday shows an EF of 40% with regional wall motion abnormality and presence of 2 x 2 centimeter apical LV thrombus. For now continue holding off on lisinopril, Lasix, carvedilol as his blood pressures are still on the softer side. Continue to monitor for fluid overload, hypotension. LV thrombus: Patient is not aware of of the same. Continue with heparin drip keeping his PTT between 65 and 80. Once creatinine becomes even more better can plan to transition home to [place]. Dr. Valero's recommendations greatly appreciated.. MIHAELA: Most likely because of severe dehydration because of diarrhea, sepsis and patient being on Lasix and lisinopril. Trending down. 2.8 today. FeNa?0.2% which is consistent with prerenal. Continue trend daily. Metabolic acidosis: Most likely because of severe MIHAELA. We will try to correct the underlying problem and continue to monitor. Patient does not need any bicarb for now. Heparin drip. Full code. Cardiac diet, low-salt diet. Continue with ICU care for now. Once COVID-19 test comes back negative can plan to transfer to cardiac stepdown unit. Attestations Medical Necessity Statement*: Campylobacter gastroenteritis, resolving shock, LV thrombus Critical Care Time: Critical Care Time (min): 70 Coding Level of Care Code Acute Interior Decorator Paperhanging for [facility] Fwd Diagnoses Campylobacter enteritis A04.5 Shock R57.9 Acute hypotension I95.9 LV (left ventricular) mural thrombus I51.3 Mesenteric panniculitis K65.4 Dehydration E86.0 Acute kidney injury N17.9 Cardiomyopathy I42.9 S/P ICD (internal cardiac defibrillator) procedure Z95.810 HTN (hypertension) I10 CAD (coronary artery disease) I25.10
[2019-09-04 12:11] LABS: Partial Thromboplastin Time 175.9 SECONDS (23.9-36.7)
[2019-09-04 15:14] LABS: Partial Thromboplastin Time 37.4 SECONDS (23.9-36.7)
--- NOTE | 2019-09-04 15:36 | PC.NURSE ---
here at this time due to covid restrictions no visitors in hospital called him from her cell phone saying that we had a little kid back here and a man. 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
--- NOTE | 2019-09-04 16:00 | P.CONIM_ITS ---
Providers/Reason For Consult Consulting Physican/Specialty*: Cardiology Reason for Consult*: Newly thrombus Requesting Physcian: Kaushal Morocho MD Attending Physician: Kaushal Morocho MD Primary Care Provider: Ilia Valero MD History of Present Illness History of Present Illness Diane De Paz Jr is a 54 year old male was admitted with nausea vomiting diarrhea Hypotension and flulike symptoms. CT scan was suspicious regarding left ventricle thrombosis which was later confirmed with echocardiogram. Patient had history of coronary artery disease, cardiomyopathy systolic heart failure. When compared to the prior echocardiogram LV thrombus is new. Please note that I have not personally examine the patient since he is on COVID precaution History and physical examination was through nursing staff and Dr. Mendez. Patient was started on IV fluid and antibiotic for the diarrhea. He is being ruled out for COVID, test is pending. Review of Systems General: Reports: 10 or more systems reviewed and unremarkable except in HPI and below Const: Reports: fever, chills, body aches, fatigue and malaise; Denies: change in appetite, night sweats, diaphoresis, change in sleep pattern, daytime sleepiness or snoring Eyes: Denies: change in vision, blurry vision, photophobia, eye discomfort or eye discharge ENMT: Denies: throat pain, enlarged tonsils, hoarseness, mouth pain, oral sores/lesions, dry mouth, tinnitus, nasal congestion or post nasal drip Card: Reports: palpitations; Denies: chest pain, irregular heart rhythm, edema, swelling of feet/ankles, lightheadedness, syncope, pre-syncope, shortness of breath on exertion, shortness of breath when lying down, leg pain with exertion or bluish discoloration of hands/feet Resp: Reports: non-productive cough; Denies: shortness of breath, productive cough, wheezing, stridor, pain on inspiration, change in phlegm color, coughing up blood or chest congestion GI: Reports: abdominal pain, nausea and diarrhea; Denies: vomiting, vomiting blood, coffee grounds in vomit, difficulty swallowing, heartburn/indigestion, constipation, bloating, cramping, change in bowel habits, painful bowel movements, blood in stool or black tarry stool : Denies: flank pain, difficulty urinating, painful urination, urinary frequency, urinary urgency, urinary hesitancy, urinary dribbling, difficulty starting urination, change in urine stream, nighttime urination or blood in urine Musc: Denies: neck pain, back pain, extremity pain, extremity swelling, joint pain, joint swelling, redness, joint stiffness or limited range of motion Skin/Breast: Denies: rash Neuro: Denies: headache, numbness in extremities, weakness in extremities, changes in sensation, lack of coordination, difficulty walking, frequent falls, dizziness, vertigo, confusion, slurred speech, difficulty communicating thoughts or seizure-like activity Psych: Denies: anxiety, depression, mood swings, panic attacks, hopelessness or irritability Endo: Denies: excessive urination, excessive thirst, tired all the time, cold intolerance, excessive sweating, flushing or heat intolerance Charan/Lymph: Denies: easy bruising or easy bleeding All/Imm: Denies: tongue swelling, facial swelling or acute wheezing Meds/Allergies Home Medications and Allergies Home Medications Medication Instructions Recorded Confirmed Last Taken Type aspirin 325 mg tablet 325 mg PO DAILY 07/09/19 09/03/19 09/03/19 09:00 History carvedilol 25 mg tablet 37.5 mg PO BID tab 07/09/19 09/03/19 09/03/19 09:00 History nitroglycerin 0.4 mg sublingual 0.4 mg SUBLINGUAL Q5M PRN 07/09/19 09/03/19 09/03/19 09:00 History tablet potassium chloride 10 mEq 10 meq PO DAILY 07/09/19 09/03/19 09/03/19 09:00 History tablet,extended release(part/cryst) simvastatin 40 mg tablet 40 mg PO DAILY 07/09/19 09/03/19 09/03/19 09:00 History furosemide 20 mg tablet 20 mg PO DAILY #90 tab 08/20/19 09/03/19 09/03/19 09:00 Rx lisinopril 20 mg PO DAILY 09/03/19 09/03/19 09/03/19 09:00 History Allergies Allergy/AdvReac Type Severity Reaction Status Date / Time No Known Allergies Allergy Unverified 07/09/19 07:58 Current Medications Current Medications Generic Name Dose Route Start Last Admin Trade Name Freq PRN Reason Stop Dose Admin Aspirin 325 mg 09/04/19 09:00 09/04/19 09:33 Aspirin PO 325 mg DAILY PHI Administration Atorvastatin Calcium 20 mg 09/04/19 09:00 09/04/19 09:33 Lipitor PO 20 mg DAILY PHI Administration Famotidine 20 mg 09/03/19 17:15 09/04/19 04:45 Pepcid Inj IVP 20 mg Q12H PHI Administration Heparin Sodium/Sodium Chloride 25,000 unit in 500 mls @ 0 mls/hr 09/03/19 17:15 09/03/19 22:47 Heparin Drip IV 14 unit/kg/hr .Q0M PHI 32.4 mls/hr Administration Protocol Per Protocol Metronidazole 500 mg in 100 mls @ 100 mls/hr 09/04/19 00:00 09/04/19 11:58 Flagyl Iv IV 100 mls/hr Q8H PHI Administration Protocol Sodium Chloride 1,000 mls @ 75 mls/hr 09/03/19 20:45 09/04/19 04:46 Sodium Chloride 0.9% IV 75 mls/hr .[id number] PHI Administration Ciprofloxacin/Dextrose 400 mg in 200 mls @ 200 mls/hr 09/04/19 10:30 09/04/19 09:34 Cipro IV 200 mls/hr Q12H PHI Administration PFSH Acute PFSH: Medical History (Updated 09/04/19 @ 16:16 by Ilia Valero MD) CAD (coronary artery disease) Cardiomyopathy CHF (congestive heart failure) Dilated LV, last EF 35%, grade 2 diastolic dysfunction from 2016 HTN (hypertension) LV (left ventricular) mural thrombus Status post left heart catheterization Surgical History (Updated 09/03/19 @ 17:18 by Kaushal Morocho MD) S/P ICD (internal cardiac defibrillator) procedure S/P wrist surgery Family History Other CAD (coronary artery disease) Hypertension Social History Smoking and tobacco status: never smoked Vitals/I&O/Wt Last Vital Signs Temp 98.2 F 09/04/19 15:48 Pulse 72 09/04/19 08:00 Resp 17 09/04/19 08:00 BP 114/69 09/04/19 08:00 Pulse Ox 97 09/04/19 08:00 09/04/19 09/04/19 09/04/19 06:59 14:59 22:59 Intake Total 1178.75 / 3278.75 710 / 710 Output Total 2500 / 3000 300 / 300 Balance -1321.25 / 278.75 410 / 410 Weight last 48 hrs Weight 255 lb Weight 255 lb Data Micro: Micro: Microbiology 09/03/19 13:40 Blood Culture - Pr eliminary Blood NEGATIVE TO BRIA E 09/03/19 13:35 Blood Culture - Pr eliminary Blood NEGATIVE TO BRIA E 09/03/19 23:16 Stool Lactoferrin - Final Stool Enteric Pathogens (PCR) - Final Parasite Antigen P anshu - Final C.difficile Toxin B Gene (PCR) - Fin al 09/03/19 23:16 Occult Blood (FIT) - Final Stool A&P Assessment and plan (1) LV (left ventricular) mural thrombus: She has LV thrombus which is new however it appeared to be organized. At this point we will recommend anticoagulation since patient is in renal failure We agree with heparin later he would be switched to oral anticoagulation . Status: Acute (2) Cardiomyopathy: Status: Acute Qualifiers: Cardiomyopathy type: ischemic Qualified Code(s): I25.5 - Ischemic cardiomyopathy (3) CHF (congestive heart failure): Patient is on the dry side. Continue IV fluid Status: Acute Qualifiers: Heart failure type: systolic Heart failure chronicity: chronic Qualified Code(s): I50.22 - Chronic systolic (congestive) heart failure (4) Shock: Improved. Status: Acute Coding Level of Care Code New Pt Acute Direct Support Professional Caregiver for Rodolfo Henry Patient Type New History Expanded Problem Focused Medical Decision Making Moderate Complexity Diagnoses LV (left ventricular) mural thrombus I51.3 Cardiomyopathy I25.5 Cardiomyopathy type: ischemic CHF (congestive heart failure) I50.22 Heart failure type: systolic Heart failure chronicity: chronic Shock R57.9
[2019-09-04 19:39] LABS: Coronavirus Lab Test PTC SEE COMMENTS
[2019-09-04] MEDS: heparin drip 25,000 UNIT/500 ML PREMIX 20 UNIT IV (21:29)
[2019-09-04] MEDS: sodium chloride 0.9% 1,000 ML 50 ML IV (21:30)
[2019-09-04 23:05] LABS: Partial Thromboplastin Time 30.2 SECONDS (23.9-36.7)
[2019-09-05] MEDS: heparin 5,000 unit/mL INJ 1 mL IVP (01:24)
[2019-09-05 03:40] LABS: Eosinophil Urine No Eosinophils Seen
[2019-09-05 04:00] VITALS: BP 127/78; PULSE 65; RESP 16; TEMP 36.6; O2SAT 98
[2019-09-05] MEDS: metroNIDAZOLE IV 500 MG/100 ML PREMIX 100 MG IV (04:45)
[2019-09-05] MEDS: famotidine 20 mg/2 mL INJ IVP (04:45)
[2019-09-05 06:06] LABS: Basophils % 0.2 %; Eosinophils # 0.1 10^3/uL (0.0-0.8); Hematocrit 34.8 % (42.0-52.0); Hemoglobin 11.6 g/dL (11.7-16.6); Mean Corpuscular HGB Conc 33.3 g/dL (30.0-36.0); Mean Corpuscular Volume 102.1 fL (80-94); Mean Platelet Volume 10.5 fL (7.4-10.4); Monocytes # 0.9 10^3/uL (0.2-0.9); Monocytes % 17.1 %; Neutrophils % 39.7 %; Nucleated Red Blood Cells % 0 %; Platelet Count 180 10^3/cmm (130-400); Red Blood Count 3.41 10^6/uL (4.1-5.3); Red Cell Distribution Width 14.9 % (12.1-15.1); White Blood Count 5.1 10^3/uL (4.0-10.0)
[2019-09-05 06:21] LABS: Alanine Aminotransferase 25 U/L (0-41); Albumin Level 3.3 g/dL (3.5-5.2); Alkaline Phosphatase 45 IU/L (40-130); Anion Gap 14.2 (5-19); Aspartate Amino Transferase 27 U/L (0-40); Blood Urea Nitrogen 27 mg/dL (6-20); Calcium 8.7 mg/dL (8.5-10.5); Carbon Dioxide 23 mmol/L (22-29); Chloride 106 mmol/L (98-107); Globulin 3.1 g/dL (1.3-4.6); Glomerular Filtration Rate 57.1 mL/min (90-130); Glucose 102 mg/dL (65-115); Osmolality Calculated 285 mOsm/kg (285-295); Potassium 4.2 mmol/L (3.5-5.1); Sodium 139 mmol/L (136-145); Total Bilirubin 0.4 mg/dL (0.15-1.2); Total Protein 6.4 g/dL (6.6-8.7)
[2019-09-05 07:02] VITALS: BP 129/82; PULSE 75; RESP 20; TEMP 36.6; O2SAT 96
[2019-09-05 07:51] LABS: Partial Thromboplastin Time 96.5 SECONDS (23.9-36.7)
[2019-09-05] MEDS: aspirin 325 mg Tablet PO (08:22)
[2019-09-05] MEDS: apixaban 5 mg Tablet PO (08:22)
[2019-09-05] MEDS: atorvastatin 40 mg Tablet 20 MG PO (08:22)
[2019-09-05 08:23] VITALS: PULSE 82; RESP 18; O2SAT 97
--- NOTE | 2019-09-05 10:10 | PM.DCS ---
Discharge Providers Date of Admission: 09/03/19 16:02 Date of Discharge: September 05, 2019 Attending Provider at Admission: Kaushal Morocho MD Attending Provider at Discharge: Kaushal Morocho MD Consults: Cardiology: Dr. Valero Primary Care Provider: Ilia Valero MD Diagnoses at Discharge Discharge Diagnosis (1) LV (left ventricular) mural thrombus: Status: Acute (2) Cardiomyopathy: Status: Acute Qualifiers: Cardiomyopathy type: ischemic Qualified Code(s): I25.5 - Ischemic cardiomyopathy (3) CHF (congestive heart failure): Status: Acute Problem details: Dilated LV, last EF 35%, grade 2 diastolic dysfunction from 2016 Qualifiers: Heart failure type: systolic Heart failure chronicity: chronic Qualified Code(s): I50.22 - Chronic systolic (congestive) heart failure (4) Shock: Status: Acute Reason for Visit Reason for Visit: Reason For Visit: knee pain Hospital Course Discharge Summary: Diane De Paz Jr is a 54 year old male with past medical history of hypertension, hyperlipidemia, morbid obesity, CAD, cardiomyopathy, congestive heart failure of diastolic and systolic type, post AICD implantation came into the ER today because of feeling weak and dizziness. Patient states he has been having runny nose, flulike symptoms for last 1 week along with fever going up to 102 Fahrenheit a week ago. Patient states for this he was seen at [facility] and flu a and B was tested and was negative. For last 3 days he has been having abdominal pain along with nausea but no vomiting and multiple episodes of diarrhea for last 3 days. He has been feeling weak, dizziness since last night but symptoms persisted so he presented to the ER. Symptoms are also associated with generalized abdominal pain. Fever associated with chills and is usually intermittent. Bowel movement were watery till today morning but are now semi-formed. He also has noticed blood once in his bowel movement yesterday but if not present anymore today. He denies of having any hematemesis, dysuria, dizziness, headache, difficulty breathing, palpitations. 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 He denies of having traveled recently outside [place] in last 2 months. In the ER and presentation he was found to have hypotension with blood pressure going into 80 systolic so IV fluid was given and his blood pressure improved to [address] abdomen was done which was consistent with mesenteric pancolitis but was also consistent with a possible LV thrombus. Blood work done showed hyponatremia with creatinine of 5.3 and he was in metabolic acidosis. Patient was admitted to the ICU because of hypotension. Patient hypotension responded well to fluids. Hypotension was most likely secondary to hypovolemic shock. He was started on ciprofloxacin and Flagyl for diarrhea while stool studies were sent which ruled out C. difficile but were consistent with Campylobacter. On further interview patient stated that he consumes well water at his home. He has been advised to get his well water tested for possible contamination. Because patient was having flulike symptoms COVID 19 test was done and was ruled out. On admission patient was in MIHAELA with creatinine up to 5.3 which is most likely because of consumption of lisinopril and dehydration from diarrhea. His kidney numbers improved with IV fluids and his creatinine was down to 1.3 on day of discharge. LV thrombus was confirmed by echocardiogram. Echocardiogram also showed an EF of 40% with grade 2 diastolic dysfunction. For LV thrombus he was started on heparin drip while his creatinine was high. Heparin was transitioned over to Eliquis. Plan is to continue Eliquis for 6 months and then eventually transition to high-dose aspirin. His aspirin 325 mg have been decreased to 81 mg while he is on Eliquis. Patient's blood pressure remained stable while being off antihypertensives. He has been advised to not take carvedilol, lisinopril, Lasix for now until he is seen by Dr. Valero in his office within next 1 week. Patient is also advised to maintain a blood pressure log and take it with him while visiting Dr. Valero. Patient is advised to repeat BMP 1 week after once lisinopril is restarted. Patient is also advised to follow-up regularly with his primary care provider. Patient wants to follow-up with nurse practitioner Shahla Restrepo. He will try to make an appointment with her on Friday. He is been discharged hemodynamically stable condition with above set advises. Physical Exam Narrative: EXAM NARRATIVE: General: No acute distress, AO x3, morbidly obese, HEENT: PERRLA, pupils bilaterally equal and reactive Chest: Normal vesicular breath sounds, no added sounds, equal good air entry bilaterally, fine crackles present bilateral bases CVS: S1-S2 regular, pansystolic murmur at the apex, no tachycardia, no gallops, no rubs Abdomen: Soft, nontender, no organomegaly, bowel sounds present Neuro: No focal deficits, no facial deformity, AO x3, power 5/5 in all limbs Discharge Data Data Completed and Pending: Completed Studies During Hospitalization Category Date Time Status CT abdomen pelvis w con* [id number] Stat Cat Scan 09/03/19 13:24 Completed CV echo complete* [id number] Stat Ultrasound 09/03/19 16:02 Completed Pending at discharge Category Date Time Status Blood Culture Sta t Lab 09/03/19 13:40 Results Labs from last 24 hours 09/05/19 09/05/19 09/05/19 05:58 05:58 05:58 WBC 5.1 RBC 3.41 L Hgb 11.6 L Hct 34.8 L MCV 102.1 H MCH 34.0 MCHC 33.3 RDW 14.9 Plt Count 180 MPV 10.5 H Neut % (Auto) 39.7 Lymph % (Auto) 40.0 [place] % (Auto) 17.1 Eos % (Auto) 2.0 Baso % (Auto) 0.2 Neut # (Auto) 2.0 Lymph # (Auto) 2.0 [place] # (Auto) 0.9 Eos # (Auto) 0.1 Baso # (Auto) 0.0 Nucleated RBC % (a uto) 0 Nucleated RBCs # 0.0 APTT 96.5 H D Sodium 139 Potassium 4.2 Chloride 106 Carbon Dioxide 23 Anion Gap 14.2 BUN 27 H Creatinine 1.3 H GFR Calculation 57.1 L Glucose 102 Calculated Osmolal ity 285 Calcium 8.7 Total Bilirubin 0.4 AST 27 ALT 25 Alkaline Phosphata se 45 Total Protein 6.4 L Albumin 3.3 L Globulin 3.1 Urine Eosinophils Nasal/Oral COVID-1 9 PCR 09/05/19 09/04/19 09/04/19 01:15 22:49 15:00 WBC RBC Hgb Hct MCV MCH MCHC RDW Plt Count MPV Neut % (Auto) Lymph % (Auto) [place] % (Auto) Eos % (Auto) Baso % (Auto) Neut # (Auto) Lymph # (Auto) [place] # (Auto) Eos # (Auto) Baso # (Auto) Nucleated RBC % (a uto) Nucleated RBCs # APTT 30.2 37.4 H D Sodium Potassium Chloride Carbon Dioxide Anion Gap BUN Creatinine GFR Calculation Glucose Calculated Osmolal ity Calcium Total Bilirubin AST ALT Alkaline Phosphata se Total Protein Albumin Globulin Urine Eosinophils No eosinophils se en Nasal/Oral COVID-1 9 PCR 09/04/19 09/03/19 11:17 20:25 WBC RBC Hgb Hct MCV MCH MCHC RDW Plt Count MPV Neut % (Auto) Lymph % (Auto) [place] % (Auto) Eos % (Auto) Baso % (Auto) Neut # (Auto) Lymph # (Auto) [place] # (Auto) Eos # (Auto) Baso # (Auto) Nucleated RBC % (a uto) Nucleated RBCs # APTT 175.9 H* D Sodium Potassium Chloride Carbon Dioxide Anion Gap BUN Creatinine GFR Calculation Glucose Calculated Osmolal ity Calcium Total Bilirubin AST ALT Alkaline Phosphata se Total Protein Albumin Globulin Urine Eosinophils Nasal/Oral COVID-1 9 PCR See comments Vitals: Last Vital Signs Temp 97.8 F 09/05/19 07:02 Pulse 82 09/05/19 08:23 Resp 18 09/05/19 08:23 BP 129/82 09/05/19 07:02 Pulse Ox 97 09/05/19 08:23 Discharge Plan Discharge Patient Disposition: Home, Self-Care Condition: Stable Prescriptions: New aspirin [Aspir-81] 81 mg tablet,delayed release (DR/EC) 81 mg PO DAILY Qty: 60 RF: 0 ciprofloxacin HCl [Cipro] 500 mg tablet 500 mg PO Q12H 5 Days Qty: 10 RF: 0 Eliquis 5 mg Tablet 5 mg PO BID Qty: 60 RF: 0 Continued simvastatin 40 mg tablet 40 mg PO DAILY RF: 0 potassium chloride [Klor-Con M10] 10 mEq tablet,ER particles/crystals 10 meq PO DAILY RF: 0 nitroglycerin [Nitrostat] 0.4 mg tablet, sublingual 0.4 mg SUBLINGUAL Q5M PRN (Reason: chest) RF: 0 Held carvedilol 25 mg tablet 37.5 mg PO BID RF: 0 Hold Instructions: Resume on 09/20/19. Until seen by Dr. Valero furosemide [Lasix] 20 mg tablet 20 mg PO DAILY Qty: 90 RF: 3 Hold Instructions: Resume on 09/20/19. Until seen by Dr. Valero in 1 week or shortness of breath. lisinopril 20 mg tablet 20 mg PO DAILY RF: 0 Hold Instructions: Resume on 09/20/19. Until seen by Dr. Valero Discontinued aspirin 325 mg tablet 325 mg PO DAILY RF: 0 Discharge Orders: Discharge Order (Routine); Ordered 09/05/19 Ordered By: Kaushal Morocho Referrals: Ilia Valero MD [Primary Care Provider] - 4-7 days Discharge Diet: Cardiac Discharge Activity: Resume usual activity Activity Restrictions/Additional Instructions: Carvedilol, lisinopril and Lasix have been withheld for now until patient is seen by Dr. Valero in his office. Can take Lasix if you have shortness of breath or you have swelling in your legs. Please maintain blood pressure log and take with yourself when going to visit Dr. Valero. Please check BMP in 1 week after starting lisinopril. Because stool cultures are growing Campylobacter please get your well water tested before consumption for possible contamination. Eliquis which is a blood thinner has been added to your medication list and dose of aspirin has been decreased to 81 mg daily. Please take ciprofloxacin which is an antibiotic twice a day for 5 more days. Discharge Attestations Time Spent in Discharge Care*: greater than 30 min Specific Discharge Activities: Specific discharge activities: educating patient, discussing with pcp/other providers, discussing with block and case maker/social workers/dc planners, documenting/other paperwork and evaluating patient/reviewing data Status at Discharge: Behavioral status at discharge: cooperative, Functional status at discharge: independent ambulation Overall status at discharge: patient is back to baseline Quality Metrics Clinical Quality Measures During this hospital stay, did patient experience: None Coding Level of Care Code Acute Denture Technician for Fannieg Fwd Diagnoses LV (left ventricular) mural thrombus I51.3 Cardiomyopathy I25.5 Cardiomyopathy type: ischemic CHF (congestive heart failure) I50.22 Heart failure type: systolic Heart failure chronicity: chronic Shock R57.9
--- NOTE | 2019-09-05 11:33 | PM.PN ---
Subjective Subjective: Interval history: Feeling much better improved wanted to go home creatinine has improved. COVID test was negative Medications: Reviewed: Yes Vitals/I&O/Wt Last Vital Signs Temp 97.8 F 09/05/19 07:02 Pulse 82 09/05/19 08:23 Resp 18 09/05/19 08:23 BP 129/82 09/05/19 07:02 Pulse Ox 97 09/05/19 08:23 09/04/19 09/05/19 09/05/19 22:59 06:59 14:59 Intake Total 2009 360 / 360 Output Total 350 / 350 Balance 2008 Weight last 48 hrs Weight 253 lb 8 oz Weight 255 lb Weight 255 lb Physical Exam Narrative: EXAM NARRATIVE: . GENERAL: Patient is alert, awake and oriented x3. NECK: No jugular vein distension. HEENT: No cyanosis. No icterus. No pallor. HEART: Regular S1 and S2. No murmur, rub or gallop. LUNGS: Clear to auscultate bilaterally. ABDOMEN: Soft, nontender and nondistended. Positive bowel sounds. No guarding, rebound or tenderness. CENTRAL NERVOUS SYSTEM: Grossly nonfocal. . Data : 09/05/19 05:58 09/05/19 05:58 Micro: Microbiology 09/03/19 13:40 Blood Culture - Preliminary Blood NEGATIVE TO DATE 09/03/19 13:35 Blood Culture - Preliminary Blood NEGATIVE TO DATE 09/03/19 23:16 Stool Lactoferrin - Final Stool Enteric Pathogens (PCR) - Final Parasite Antigen Panel - Final C.difficile Toxin B Gene (PCR) - Final 09/03/19 23:16 Occult Blood (FIT) - Final Stool A&P Assessment and plan (1) LV (left ventricular) mural thrombus: Discussed with Dr. Mendez today we will switch patient to oral anticoagulant. Discontinue Plavix continue low-dose aspirin. We will see patient in our clinic in within 10 days Status: Acute (2) Cardiomyopathy: Denies any chest pain. Stable. Recent echo was consistent with moderately reduced LV function which has not changed from the prior admissions it is 40% Status: Acute Qualifiers: Cardiomyopathy type: ischemic Qualified Code(s): I25.5 - Ischemic cardiomyopathy (3) CHF (congestive heart failure): Well compensated Status: Acute Qualifiers: Heart failure type: systolic Heart failure chronicity: chronic Qualified Code(s): I50.22 - Chronic systolic (congestive) heart failure (4) Shock: Improved. Status: Acute Attestations Medical Necessity Statement*: From a cardiovascular perspective patient can be discharged home follow-up with cardiology in 1 week Coding Level of Care Code Established Pt Acute Tightening Machine Operator for Rodolfo Henry Patient Type Established History Expanded Problem Focused Exam Expanded Problem Focused Medical Decision Making Moderate Complexity Diagnoses LV (left ventricular) mural thrombus I51.3 Cardiomyopathy I25.5 Cardiomyopathy type: ischemic CHF (congestive heart failure) I50.22 Heart failure type: systolic Heart failure chronicity: chronic Shock R57.9
[2019-09-05 11:44] VITALS: BP 135/88; PULSE 78; RESP 20; TEMP 36.7; O2SAT 99
[2019-09-05 11:51] VITALS: BP 135/88; PULSE 78; RESP 20; TEMP 36.7; O2SAT 99
--- NOTE | 2019-09-05 16:13 | PC.NURSE ---
Ishan tan Handed to pt.
--- NOTE | 2019-09-05 16:21 | PC.NURSE ---
Discharge to home Instructed pt on follow-up appointments. Educated pt on new meds actions, dosing, timing and possible side effects. Discuss to pt on the hold meds as instructed. Pt verbalizes understanding. work release given to pt. Discharge papers provided to pt
== END 2019-09-05 12:20 | disposition home or self-care (01) | DRG 371 ==
LOC: ER 16:09 → ICU 17:37 → MEDSURG 09-04 18:47
PROVIDERS: Admitting Provider Student in an Organized Health Care Education/Training Program; Emergency Provider Emergency Medicine; Family Provider Internal Medicine Cardiovascular Disease; PCP Internal Medicine Cardiovascular Disease; Visit Provider Student in an Organized Health Care Education/Training Program
DX: A04.5 Campylobacter enteritis (principal); I50.43 Acute on chronic combined systolic (congestive) and diastolic (congestive) heart failure; K65.4 Sclerosing mesenteritis; N17.9 Acute kidney failure, unspecified; E87.2 Acidosis; I11.0 Hypertensive heart disease with heart failure; E78.5 Hyperlipidemia, unspecified; E66.01 Morbid (severe) obesity due to excess calories; Z68.34 Body mass index [BMI] 34.0-34.9, adult; I25.10 Atherosclerotic heart disease of native coronary artery without angina pectoris; I25.5 Ischemic cardiomyopathy; Z95.810 Presence of automatic (implantable) cardiac defibrillator; I95.9 Hypotension, unspecified; E86.0 Dehydration
CPT/HCPCS: 12345; 36415; 74177; 80053; 81001; 81003; 82274; 82436; 82570; 83605; 83630; 83690; 83735; 83880; 84100; 84133; 84145; 84300; 84443; 85025; 85610; 85730; 85999; 87040; 87493; 87506; 87635; 93306; 94664; 96374; 96375; 99284; J0744; J1644; J2405; J3490; J7030; Q9967; S0030

== ENCOUNTER 2021-10-25 06:00 | Outpatient (CLI) | payer BC, SELFPAY | END 2021-10-25 09:56 | disposition home or self-care (01) | PROVIDERS: PCP Family Medicine; Visit Provider Internal Medicine Cardiovascular Disease | DX: I50.22 Chronic systolic (congestive) heart failure (principal) | CPT/HCPCS: 36415; 80048; 83880 ==

== ENCOUNTER 2023-11-11 09:55 | Emergency (ER) | payer BC, SELFPAY ==
--- NOTE | 2023-11-11 09:57 | ECG_ITS ---
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 Measurements Intervals [place] Rate: 67 P: 40 [place]: 169 QRS: 37 QRSD: 79 T: 83 QT: 374 QTc: 396 Interpretive Statements SINUS RHYTHM SEPTAL MYOCARDIAL INFARCTION , PROBABLY OLD [40+ ms Q WAVE IN V1/V2] No previous ECG available for comparison Electronically Signed On 11-11-2023 23:29:40 CDT by Beena Arceo M.D. [id number]
--- NOTE | 2023-11-11 09:57 | XRR_ITS ---
PROCEDURE INFORMATION: Exam: XR Chest Exam date and time: 11/11/2023 10:06 AM Age: 58 years old Clinical indication: Other: Syncope TECHNIQUE: Imaging protocol: Radiologic exam of the chest. Views: 1 view. COMPARISON: CT abdomen pelvis w con* [id number] 09/03/2019 2:01 PM FINDINGS: Tubes, catheters and devices: Multilead pacemaker/defibrillator. Lungs: Unremarkable. No consolidation. Pleural spaces: Unremarkable. No pleural effusion. No pneumothorax. Heart/Mediastinum: Unremarkable. No cardiomegaly. Bones/joints: Unremarkable. XR/XR chest 1V portable [id number] IMPRESSION: No acute findings.
[2023-11-11 10:01] VITALS: BP 114/73; PULSE 67; RESP 18; TEMP 36.5; O2SAT 100; BMI 32.5
--- NOTE | 2023-11-11 11:01 | ED_ITS ---
HPI - Syncope 2 General: Chief Complaint: Syncope Stated Complaint: passed out and fell Time Seen by Provider: 11/11/23 11:00 Source: patient Mode of arrival: EMS History of Present Illness: 58-year-old male presents emergency room with complaints of syncopal episode. [place] issues he got lightheaded dizzy felt sweaty and collapsed. Patient has a known history of cardiomyopathy and has an ICD in place he also has an intramural thrombus he is on an anticoagulant he has not previously needed any stents he was thought that he previously had a heart attack but had no intervention he did have an angiogram per his report from Dr. Krishna and was told he did not need any stents. He is not having any chest pain at this time. MD complaint: loss of consciousness and collapsed Onset (ago): minute(s) Prodromal symptoms: lightheaded and diaphoresis Witnessed: Yes - by Bystander Context: standing up Associated symptoms: Deny abdominal pain, chest pain or fever(s) Treatments prior to arrival: none Review of Systems 2 Const: Denies: fever(s) or chills Card: Denies: chest pain Resp: Denies: dyspnea GI: Denies: abdominal pain : Denies: dysuria, urinary frequency or urinary urgency Musc: Denies: neck pain or back pain Skin/Breast: Denies: rash PFSH ED 2 PFSH: Medical History CHF (congestive heart failure) Moderately reduced LV function not changed from the prior admissions 40% which is known to be. LV (left ventricular) mural thrombus Cardiomyopathy HTN (hypertension) CAD (coronary artery disease) Status post left heart catheterization Surgical History S/P ICD (internal cardiac defibrillator) procedure S/P wrist surgery Family History Mother CAD (coronary artery disease) unknown age of onset Cancer Father CAD (coronary artery disease) IA 50 Cancer Lung disease Other Hypertension Denies family history of Diabetes Clotting disorder Dementia Chronic kidney disease (CKD) Suicide Anesthesia complication Bleeding disorder Stroke Social History Smoking and tobacco/nicotine status: former use of tobacco/nicotine Alcohol intake: never Substance/Drug Use: never Physical Exam 2 Const: COMMON NORMALS: no acute distress GENERAL APPEARANCE: cooperative and comfortable ORIENTATION/CONSCIOUSNESS: Yes awake, Yes oriented to person, Yes oriented to place and Yes oriented to time HENMT: COMMON NORMALS: normocephalic, atraumatic and hearing grossly normal bilaterally HEAD & SCALP: normocephalic and atraumatic Resp: COMMON NORMALS: normal respiratory effort, No retractions, No use of accessory muscles and clear to auscultation bilaterally AUSCULTATION: clear to auscultation bilaterally Cardio: COMMON NORMALS: regular rate, regular rhythm and No murmurs present (Cardio) RATE: regular rate RHYTHM: regular rhythm GI: COMMON NORMALS: Soft to palpation and No hepatosplenomegaly present A USCULTATION: Yes normoactive bowel sounds PALPATION: Yes Soft to palpation, No Tenderness to palpation present (GI), No Guarding due to palpation present (GI) and Yes No hepatosplenomegaly present Extremity: COMMON NORMALS: normal to inspection, capillary refill normal, no clubbing, cyanosis or edema, no calf tenderness and no pedal edema Neuro: SENSORIUM/ORIENTATION: Yes oriented to person, Yes oriented to place and Yes oriented to time Skin: COMMON NORMALS: no rashes or lesions noted GENERAL SKIN EXAM: no rashes or lesions noted Course 2 Vital Signs: Vital signs: Vital Signs Temperature 97.7 F 11/11/23 15:23 Pulse Rate 71 11/11/23 15:23 Respiratory Rate 18 11/11/23 15:23 Blood Pressure 90/49 11/11/23 15:23 Pulse Oximetry 100 11/11/23 15:23 Oxygen Delivery Me thod Room Air 11/11/23 14:13 MDM - Syncope Medical Decision Making Sycnopal episode after standing for an extended period of time. He has no further symptoms. His Trop I are trending negative. Intergoation of the EKG is negative. Will set the patient up for outpatient echocardiogram. Medical Records I reviewed the patient's medical records. Lab Data I reviewed the patient's lab results. 11/11/23 11:22 11/11/23 11:22 Radiology Impressions Chest X-Ray 11/11/23 09:57 IMPRESSION: No acute findings. Laboratory Results WBC 4.59 10^3/uL (3.29-11.43) 11/11/23 11:22 RBC 2.10 10^6/uL (3.85-5.65) L 11/11/23 11:22 Hgb 9.40 g/dL (11.27-16.99) L 11/11/23 11:22 Hct 26.2 % (37-53) L 11/11/23 11:22 MCV 124.8 fl (82-101) H 11/11/23 11:22 MCH 44.8 pg (27-33) H 11/11/23 11:22 MCHC 35.9 g/dL (30-55) 11/11/23 11:22 RDW 15.9 % (12.1-15.1) H 11/11/23 11:22 Plt Count 152 10^3/cmm (157-399) L 11/11/23 11:22 MPV 12.5 fL (7.4-10.4) H 11/11/23 11:22 Neut % (Auto) 76.8 % 11/11/23 11:22 Lymph % (Auto) 16.8 % 11/11/23 11:22 [place] % (Auto) 5.0 % 11/11/23 11:22 Eos % (Auto) 0.7 % 11/11/23 11:22 Baso % (Auto) 0.0 % 11/11/23 11:22 Neut # (Auto) 3.53 10^3/uL (1.8-7.7) 11/11/23 11:22 Lymph # (Auto) 0.8 10^3/uL (0.8-4.8) 11/11/23 11:22 [place] # (Auto) 0.2 10^3/uL (0.2-0.9) 11/11/23 11:22 Eos # (Auto) 0.0 10^3/uL (0.0-0.8) 11/11/23 11:22 Baso # (Auto) 0.0 10^3/uL (0.0-0.1) 11/11/23 11:22 Nucleated RBC % (auto) 0 % 11/11/23 11:22 Nucleated RBCs # 0.0 /100WBC 11/11/23 11:22 Sodium 142 mmol/L (136-145) 11/11/23 11:22 Potassium 4.2 mmol/L (3.5-5.1) 11/11/23 11:22 Chloride 104 mmol/L (98-107) 11/11/23 11:22 Carbon Dioxide 26 mmol/L (22-29) 11/11/23 11:22 Anion Gap 16.2 (5-19) 11/11/23 11:22 BUN 14 mg/dL (8-23) 11/11/23 11:22 Creatinine 0.7 mg/dL (0.7-1.2) 11/11/23 11:22 GFR Calculation 115.0 mL/min (90-130) 11/11/23 11:22 Glucose 136 mg/dL (65-115) H 11/11/23 11:22 Calculated Osmolality 297 mOsm/kg (285-295) H 11/11/23 11:22 Calcium 8.9 mg/dL (8.5-10.5) 11/11/23 11:22 Total Bilirubin 2.4 mg/dL (0.15-1.2) H 11/11/23 11:22 AST 29 U/L (0-40) 11/11/23 11:22 ALT 19 U/L (0-41) 11/11/23 11:22 Alkaline Phosphatase 63 U/L (40-130) 11/11/23 11:22 Troponin T Baseline 14 ng/L (0-15) 11/11/23 11:22 Troponin T 120 Minute 11.02 ng/L (0-15) 11/11/23 13:34 Delta Troponin T -2.98 ABS# (0-10) L 11/11/23 13:34 Total Protein 6.9 g/dL (6.6-8.7) 11/11/23 11:22 Albumin 4.5 g/dL (3.5-5.2) 11/11/23 11:22 Globulin 2.4 g/dL (1.3-4.6) 11/11/23 11:22 All radiology interpretation(s) finalized by discharge Discharge Plan Discharge Patient Disposition: Home Clinical Impression: Vasovagal syncope Condition: Stable Prescriptions: No Action sacubitril-valsartan 97-103 mg tablet 1 tab PO BID Qty: 180 3RF nitroglycerin [Nitrostat] 0.4 mg tablet, sublingual 0.4 mg SUBLINGUAL Q5M PRN (Reason: chest) Qty: 25 4RF carvedilol 12.5 mg tablet 12.5 mg PO BID Qty: 180 2RF Rx Instructions: must administer with a meal/food Eliquis 5 mg tablet 5 mg PO BID Qty: 180 2RF simvastatin 40 mg tablet 40 mg PO QPM Discharge Orders: Discharge ED (Routine); Ordered 11/11/23 Ordered By: Ephraim Ya Referrals: Genoveva Gtz DO [Primary Care Provider] - Discharge Diet: Usual diet Discharge Activity: Resume usual activity Patient Instructions: Opioid Safety, Pain Management Activity Restrictions/Additional Instructions: Thank you for choosing [facility] for your healthcare needs today. It is very important that you follow up as instructed or that you return to the Emergency Department should you have concerns or if your condition changes or worsens in any way. You were seen in the ER with complaints of a sycnopal episode, Interogation of your pacemaker showed no abnormalities. Case management will make arrangments for an echocardiogram as an outpatient. 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
[2023-11-11 11:18] VITALS: BP 131/56; PULSE 69; O2SAT 100
[2023-11-11 11:34] LABS: Eosinophils % 0.7 %; Hematocrit 26.2 % (37-53); Lymphocytes # 0.8 10^3/uL (0.8-4.8); Lymphocytes % 16.8 %; Mean Corpuscular HGB Conc 35.9 g/dL (30-55); Mean Corpuscular Hemoglobin 44.8 pg (27-33); Mean Corpuscular Volume 124.8 fl (82-101); Mean Platelet Volume 12.5 fL (7.4-10.4); Monocytes # 0.2 10^3/uL (0.2-0.9); Neutrophils # 3.53 10^3/uL (1.8-7.7); Neutrophils % 76.8 %; Nucleated Red Blood Cells % 0 %; Platelet Count 152 10^3/cmm (157-399); Red Cell Distribution Width 15.9 % (12.1-15.1); White Blood Count 4.59 10^3/uL (3.29-11.43)
[2023-11-11 11:52] LABS: Troponin(5th) Baseline 14 ng/L (0-15)
[2023-11-11 11:56] LABS: Alanine Aminotransferase 19 U/L (0-41); Albumin Level 4.5 g/dL (3.5-5.2); Alkaline Phosphatase 63 U/L (40-130); Anion Gap 16.2 (5-19); Aspartate Amino Transferase 29 U/L (0-40); Blood Urea Nitrogen 14 mg/dL (8-23); Calcium 8.9 mg/dL (8.5-10.5); Carbon Dioxide 26 mmol/L (22-29); Chloride 104 mmol/L (98-107); Creatinine Clr Calc Pharmacy 143.0235; Globulin 2.4 g/dL (1.3-4.6); Glucose 136 mg/dL (65-115); Osmolality Calculated 297 mOsm/kg (285-295); Potassium 4.2 mmol/L (3.5-5.1); Sodium 142 mmol/L (136-145); Total Bilirubin 2.4 mg/dL (0.15-1.2); Total Protein 6.9 g/dL (6.6-8.7)
--- NOTE | 2023-11-11 12:05 | ECG_ITS ---
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 Measurements Intervals [place] Rate: 69 P: 19 [place]: 171 QRS: 52 QRSD: 93 T: 81 QT: 388 QTc: 417 Interpretive Statements SINUS RHYTHM WITH FREQUENT SUPRAVENTRICULAR PREMATURE COMPLEXES NONSPECIFIC T-WAVE ABNORMALITY ABNORMAL RHYTHM ECG Compared to ECG 11/11/2023 11:03:04 T-wave abnormality now present Myocardial infarct finding no longer present Electronically Signed On 11-11-2023 23:46:38 CDT by Beena Arceo M.D. [id number]
[2023-11-11 12:53] VITALS: BP 113/66; PULSE 60
[2023-11-11 14:10] LABS: Troponin 5 2HR 11.02 ng/L (0-15)
[2023-11-11 14:11] LABS: Troponin 5 2HR Delta -2.98 ABS# (0-10)
[2023-11-11 14:12] VITALS: BP 106/60; BP 120/64; BP 90/44; PULSE 67; PULSE 72; PULSE 76
[2023-11-11 14:13] VITALS: BP 90/49; PULSE 71; O2SAT 100
[2023-11-11 15:23] VITALS: BP 90/49; PULSE 71; RESP 18; TEMP 36.5; O2SAT 100
== END 2023-11-11 15:24 | disposition home or self-care (01) ==
PROVIDERS: Physician Assistant; Emergency Provider Family Medicine; PCP Family Medicine
DX: R55 Syncope and collapse (principal); I11.0 Hypertensive heart disease with heart failure; I50.9 Heart failure, unspecified; I42.9 Cardiomyopathy, unspecified; I25.10 Atherosclerotic heart disease of native coronary artery without angina pectoris; Z79.899 Other long term (current) drug therapy; Z79.01 Long term (current) use of anticoagulants; Z87.891 Personal history of nicotine dependence; Z82.49 Family history of ischemic heart disease and other diseases of the circulatory system
CPT/HCPCS: 36415; 71045; 80053; 84484; 85025; 93005; 99285

== ENCOUNTER 2023-12-08 14:14 | Outpatient (CLI) | payer BC, SELFPAY ==
--- NOTE | 2023-12-08 15:00 | USCV_ITS ---
Diane De Paz Jr Age: 58 Gender: M : 1965 Exam Date: 12/08/2023 14:29 Ordering Phys: Beena Arceo MD ([email or web address]) Technologist: CT [place]am [place] [facility] [place]: Cardiomyopathy BP: 124 / 77 HR: 82 Rhythm: Sinus Technical Quality: Adequate MEASUREMENTS (Male / Female) Normal Values 2D ECHO LVOT Diameter 2.1 cm LV Ejection Fraction MOD 4C 32.5 % LV Ejection Fraction MOD 2C 41.1 % LV Ejection Fraction 2C AL 42.7 % LA Diameter 4.7 cm RA Systolic Volume 4C AL 98.1 ml RA Systolic Volume 4C MOD 91.4 ml LA Sys Volume AL 119.2 cm cubed LA Sys Volume Index AL 51.8 cm cubed/m squared Aorta at Sinotubular Diameter 2.6 cm M-MODE LA Ao Ratio MM 1.9 AV Cusp Separation MM 1.8 cm DOPPLER AV Peak Velocity 150.0 cm/s LVOT Peak Velocity 119.0 cm/s AV Area Cont Eq vti 2.4 cm squared AV Area Cont Eq pk 2.7 cm squared MV Peak Velocity 115.0 cm/s MV Area PHT 3.0 cm squared Mitral E to A Ratio 0.9 TV Peak Velocity 145.5 cm/s TR Peak Velocity 146.0 cm/s TR Peak Gradient 8.5 mmHg TV Peak E Velocity 75.0 cm/s Right Atrial Pressure 3.0 mmHg Pulmonary Artery Systolic Pressu 11.5 mmHg PV Peak Velocity 125.0 cm/s FINDINGS Left Ventricle Technically limited quality echocardiogram because of poor ultrasonic windows. Grossly LV systolic function is moderately reduced. Regional wall motion abnormalities cannot accurately be assessed because of limited visualization. Right Ventricle Normal in size and function Right Atrium Dilated Left Atrium Severely dilated Mitral Valve Structurally normal mitral valve. Mild mitral regurgitation Aortic Valve Grossly thickened. No significant stenosis or regurgitation Tricuspid Valve Insufficient TR jet to calculate RVSP. Pulmonic Valve Not well visualized Pericardium Normal Aorta Normal in size IVC Appears to be normal CONCLUSIONS Technically limited quality echocardiogram because of poor ultrasonic windows. Grossly LV systolic function is moderately reduced. Biatrial enlargement Mild mitral regurgitation. Geronimo Hollis MD (Electronically Signed) Final Date: 22 December 2023 18:16 S
== END 2023-12-08 14:15 | disposition home or self-care (01) ==
PROVIDERS: PCP Nurse Practitioner Family; Visit Provider Internal Medicine Cardiovascular Disease
DX: I50.30 Unspecified diastolic (congestive) heart failure (principal); I51.7 Cardiomegaly; R06.09 Other forms of dyspnea
CPT/HCPCS: 93306

== ENCOUNTER 2023-12-23 15:38 | Inpatient (IN) | payer BC, SELFPAY ==
[2023-12-23] VITALS (39 sets, daily range): BP systolic 76–106; BP diastolic 39–74; PULSE 75–97; RESP 10–24; TEMP 36.7–37.3; O2SAT 95–100; BMI 29.9; BMI 30.4
--- NOTE | 2023-12-23 16:19 | ED_ITS ---
HPI - Recheck/Abnormal Lab/Rx 2 General: Chief Complaint: Recheck/Abnormal Lab/Rx Stated Complaint: sent by oleg main less than 7 Time Seen by Provider: 12/23/23 16:13 Source: patient Mode of arrival: ambulatory Limitations: no limitations History of Present Illness: 67-year-old male states been having some increased weakness over the last week states he had seen his PCP and told to come here if she was anemic. Patient is hypotensive in triage states had some lightheadedness as well he denies any bleeding he denies any increased new pains. He states his bowel movements have been normal he had no vomiting denies any diarrhea. Related Data Home Medications Medication Instructions Recorded Confirmed simvastatin 40 mg tablet 40 mg PO QPM 11/11/23 11/18/23 Previous Rx's Medication Instructions Recorded nitroglycerin 0.4 mg sublingual 0.4 mg sublingual Q5M PRN chest 10/09/22 tablet (Nitrostat) #25 tabs apixaban 5 mg tablet (Eliquis) 5 mg PO BID #180 tabs 03/24/23 sacubitril 97 mg-valsartan 103 mg 1 tab PO BID #180 tabs 04/04/23 tablet carvedilol 12.5 mg tablet See Rx Instructions .Route 12/15/23 .COMPLEX #180 tabs Allergies Allergy/AdvReac Type Severity Reaction Status Date / Time No Known Allergies Allergy Verified 11/17/23 14:15 Review of Systems 2 Const: Reports: fatigue and malaise; Denies: fever(s), chills, body aches or change in appetite ENMT: Denies: throat pain or dental pain Card: Denies: chest pain Resp: Denies: dyspnea GI: Denies: abdominal pain, nausea, vomiting or diarrhea Musc: Denies: neck pain or back pain Skin/Breast: Denies: rash Neuro: Denies: headache(s) PFSH ED 2 PFSH: Medical History CHF (congestive heart failure) Moderately reduced LV function not changed from the prior admissions 40% which is known to be. LV (left ventricular) mural thrombus Cardiomyopathy HTN (hypertension) CAD (coronary artery disease) Status post left heart catheterization Surgical History S/P ICD (internal cardiac defibrillator) procedure S/P wrist surgery Family History Mother CAD (coronary artery disease) unknown age of onset Cancer Father CAD (coronary artery disease) AR 50 Cancer Lung disease Other Hypertension Denies family history of Diabetes Clotting disorder Dementia Chronic kidney disease (CKD) Suicide Anesthesia complication Bleeding disorder Stroke Social History Smoking and tobacco/nicotine status: former use of tobacco/nicotine Alcohol intake: never Substance/Drug Use: never Physical Exam 2 Const: COMMON NORMALS: patient oriented x3 GENERAL APPEARANCE: ill appearing HENMT: COMMON NORMALS: normocephalic and atraumatic HEAD & SCALP: n ormocephalic and atraumatic Eye: COMMON NORMALS: Equal, round and reactive pupils present and EOMs intact bilaterally PUPIL: Yes Equal, round and reactive pupils present Neck/C-Spine: COMMON NORMALS: full ROM and supple Chest: COMMONS NORMALS: normal inspection of the chest and normal palpation of entire chest wall Resp: COMMON NORMALS: normal respiratory effort, No retractions, No use of accessory muscles and clear to auscultation bilaterally AUSCULTATION: clear to auscultation bilaterally Cardio: COMMON NORMALS: regular rate, regular rhythm and No murmurs present (Cardio) RATE: regular rate RHYTHM: regular rhythm GI: COMMON NORMALS: Normal to inspection, nondistended, normoactive bowel sounds present, Soft to palpation, non-tender and no masses PALPATION: Yes Soft to palpation Extremity: COMMON NORMALS: normal to inspection and full ROM Neuro: COMMON NORMALS: patient oriented x3, moves all extremities and no focal motor deficits Psych: COMMON NORMALS: mental status grossly normal, Normal thought process present and cooperative THOUGHT PROCESS: Normal thought process present Skin: COMMON NORMALS: no rashes or lesions noted and no wounds GENERAL SKIN EXAM: no rashes or lesions noted Course 2 Vital Signs: Vital signs: Vital Signs Temperature 98.0 F 12/23/23 15:53 Pulse Rate 88 12/23/23 19:07 Respiratory Rate 18 12/23/23 19:07 Blood Pressure 99/56 12/23/23 19:07 Pulse Oximetry 100 12/23/23 19:07 Oxygen Delivery Me thod Room Air 12/23/23 18:00 MDM - Recheck/Abnormal Lab/Rx Medical Decision Making Patient presents here with weakness was found to be anemic no signs of any active bleeding he has slight pancytopenia we will check B12 level did transfuse him here his blood pressure here is improving no signs of any infection here spoke to the hospitalist will admit at this time Medical Records I reviewed the patient's medical records. Lab Data I reviewed the patient's lab results. 12/23/23 16:15 12/23/23 16:15 Radiology Impressions Chest X-Ray 12/23/23 16:36 IMPRESSION: No acute findings. Abdomen/Pelvis CT 12/23/23 16:51 IMPRESSION: 1. No definite acute findings in the abdomen/pelvis. 2. Mild fat stranding along the mesenteric root with a few prominent mesenteric lymph nodes is nonspecific but can be seen with chronic inflammation among other etiologies. 3. Cholelithiasis without evidence of acute cholecystitis. 4. Multilevel degenerative changes of the visualized spine with advanced facet arthropathy in the mid to lower lumbar spine. 5. Small bilateral pleural effusions with adjacent relaxation atelectasis. 6. Mild cardiomegaly with partially imaged pericardial calcifications. Laboratory Results WBC 3.15 10^3/uL (3.29-11.43) L 12/23/23 16:15 RBC 1.45 10^6/uL (3.85-5.65) L 12/23/23 16:15 Hgb 6.40 g/dL (11.27-16.99) L* 12/23/23 16:15 Hct 17.5 % (37-53) L* 12/23/23 16:15 MCV 120.7 fl (82-101) H 12/23/23 16:15 MCH 44.1 pg (27-33) H 12/23/23 16:15 MCHC 36.6 g/dL (30-55) 12/23/23 16:15 RDW 19.0 % (12.1-15.1) H 12/23/23 16:15 Plt Count 66 10^3/cmm (157-399) L 12/23/23 16:15 MPV Not Reportable 12/23/23 16:15 Neut % (Auto) 51.2 % 12/23/23 16:15 Lymph % (Auto) 40.6 % 12/23/23 16:15 [place] % (Auto) 6.0 % 12/23/23 16:15 Eos % (Auto) 1.9 % 12/23/23 16:15 Baso % (Auto) 0.0 % 12/23/23 16:15 Neut # (Auto) 1.61 10^3/uL (1.8-7.7) L 12/23/23 16:15 Lymph # (Auto) 1.3 10^3/uL (0.8-4.8) 12/23/23 16:15 [place] # (Auto) 0.2 10^3/uL (0.2-0.9) 12/23/23 16:15 Eos # (Auto) 0.1 10^3/uL (0.0-0.8) 12/23/23 16:15 Baso # (Auto) 0.0 10^3/uL (0.0-0.1) 12/23/23 16:15 Nucleated RBC % (auto) 0 % 12/23/23 16:15 Nucleated RBCs # 0.0 /100WBC 12/23/23 16:15 PT 21.30 SECONDS (12.1-14.9) H 12/23/23 16:15 INR 1.78 (0.8-1.2) H 12/23/23 16:15 Sodium 141 mmol/L (136-145) 12/23/23 16:15 Potassium 3.5 mmol/L (3.5-5.1) 12/23/23 16:15 Chloride 104 mmol/L (98-107) 12/23/23 16:15 Carbon Dioxide 27 mmol/L (22-29) 12/23/23 16:15 Anion Gap 13.5 (5-19) 12/23/23 16:15 BUN 17 mg/dL (8-23) 12/23/23 16:15 Creatinine 0.9 mg/dL (0.7-1.2) 12/23/23 16:15 GFR Calculation 86.1 mL/min (90-130) L 12/23/23 16:15 Glucose 155 mg/dL (65-115) H 12/23/23 16:15 Calculated Osmolality 297 mOsm/kg (285-295) H 12/23/23 16:15 Lactic Acid 2.4 mmol/L (0.5-2.2) H 12/23/23 17:57 Calcium 8.8 mg/dL (8.5-10.5) 12/23/23 16:15 Iron 150 ug/dL (59-158) 12/23/23 17:57 TIBC 189 mcg/dl 12/23/23 17:57 % Saturation 79.3 % (20-50) H 12/23/23 17:57 Unsat Iron Binding 39 ug/dL (112-347) L 12/23/23 17:57 Ferritin 319 ng/mL (30-400) 12/23/23 17:57 Total Bilirubin 3.3 mg/dL (0.15-1.2) H 12/23/23 16:15 AST 44 U/L (0-40) H 12/23/23 16:15 ALT 28 U/L (0-41) 12/23/23 16:15 Alkaline Phosphatase 52 U/L (40-130) 12/23/23 16:15 NT-Pro-B Natriuret Pep 2943 pg/mL (0-125) H 12/23/23 17:57 Total Protein 5.9 g/dL (6.6-8.7) L 12/23/23 16:15 Albumin 4.0 g/dL (3.5-5.2) 12/23/23 16:15 Globulin 1.9 g/dL (1.3-4.6) 12/23/23 16:15 Blood Type A Positive 12/23/23 16:15 Rho(D) Type Rh positive 12/23/23 16:15 Antibody Screen Negative 12/23/23 16:15 Crossmatch See Detail 12/23/23 16:15 All radiology interpretation(s) finalized by discharge EKG Data EKG 1: I personally reviewed and interpreted this EKG as follows: EKG interpretation date: 12/23/23 EKG interpretation time: 17:26 Interpretation: nsr hr [address] or t wave abnormalities qrs 112 qtc 445 Discharge Plan Discharge Admit Provider: Ilia Comer Condition: Stable Coding Level of Care Code 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
[2023-12-23 16:29] LABS: Eosinophils # 0.1 10^3/uL (0.0-0.8); Eosinophils % 1.9 %; Lymphocytes # 1.3 10^3/uL (0.8-4.8); Lymphocytes % 40.6 %; Mean Corpuscular HGB Conc 36.6 g/dL (30-55); Mean Corpuscular Hemoglobin 44.1 pg (27-33); Mean Corpuscular Volume 120.7 fl (82-101); Monocytes # 0.2 10^3/uL (0.2-0.9); Neutrophils # 1.61 10^3/uL (1.8-7.7); Neutrophils % 51.2 %; Nucleated Red Blood Cells % 0 %; Platelet Count 66 10^3/cmm (157-399); Red Blood Count 1.45 10^6/uL (3.85-5.65); White Blood Count 3.15 10^3/uL (3.29-11.43)
[2023-12-23 16:32] LABS: Hematocrit 17.5 % (37-53)
[2023-12-23 16:33] LABS: Slide Review Slide Review Perform
--- NOTE | 2023-12-23 16:36 | XRR_ITS ---
PROCEDURE INFORMATION: Exam: XR Chest Exam date and time: 12/23/2023 4:41 PM Age: 58 years old Clinical indication: Other: Weakness; Prior surgery; Surgery date: 6+ months; Surgery type: Pacer TECHNIQUE: Imaging protocol: Radiologic exam of the chest. Views: 1 view. COMPARISON: CR XR chest 1V portable [id number] 11/11/2023 10:06 AM FINDINGS: Tubes, catheters and devices: Stable left subclavian AICD with right atrial appendage and right ventricular leads. Lungs: Unremarkable. No consolidation. Pleural spaces: Unremarkable. No pleural effusion. No pneumothorax. Heart/Mediastinum: Stable cardiomediastinal contours. Bones/joints: Unremarkable. XR/XR chest 1V portable [id number] IMPRESSION: No acute findings.
--- NOTE | 2023-12-23 16:36 | ECG_ITS ---
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 Measurements Intervals Josephine Rate: 85 P: 50 SC: 158 QRS: 34 QRSD: 112 T: 59 QT: 402 QTc: 481 Interpretive Statements SINUS RHYTHM LOW QRS VOLTAGE IN EXTREMITY LEADS [QRS DEFLECTION < 0.5 mV IN LIMB LEADS] ANTEROSEPTAL MYOCARDIAL INFARCTION , OF INDETERMINATE AGE [40+ ms Q WAVE IN V1-V4] Compared to ECG 11/11/2023 12:05:08 Low QRS voltage now present Myocardial infarct finding now present T-wave abnormality no longer present Electronically Signed On 12-23-2023 23:32:32 CDT by Beena Arceo M.D. [email or web address]
[2023-12-23 16:42] LABS: INR 1.78 (0.8-1.2)
[2023-12-23 16:48] LABS: Alanine Aminotransferase 28 U/L (0-41); Alkaline Phosphatase 52 U/L (40-130); Anion Gap 13.5 (5-19); Aspartate Amino Transferase 44 U/L (0-40); Blood Urea Nitrogen 17 mg/dL (8-23); Calcium 8.8 mg/dL (8.5-10.5); Carbon Dioxide 27 mmol/L (22-29); Chloride 104 mmol/L (98-107); Creatinine Clr Calc Pharmacy 106.9398; Globulin 1.9 g/dL (1.3-4.6); Glomerular Filtration Rate 86.1 mL/min (90-130); Glucose 155 mg/dL (65-115); Osmolality Calculated 297 mOsm/kg (285-295); Potassium 3.5 mmol/L (3.5-5.1); Sodium 141 mmol/L (136-145); Total Bilirubin 3.3 mg/dL (0.15-1.2); Total Protein 5.9 g/dL (6.6-8.7)
--- NOTE | 2023-12-23 16:51 | CTR_ITS ---
PROCEDURE INFORMATION: Exam: CT Abdomen And Pelvis With Contrast Exam date and time: 12/23/2023 5:01 PM Age: 58 years old Clinical indication: Other: Weakness; Abdominal pain; Prior surgery; Surgery date: 6+ months; Surgery type: Pacer; Additional info: Abd pain TECHNIQUE: Imaging protocol: Computed tomography of the abdomen and pelvis with contrast. Radiation optimization: All CT scans at this facility use at least one of these dose optimization techniques: automated exposure control; mA and/or kV adjustment per patient size (includes targeted exams where dose is matched to clinical indication); or iterative reconstruction. Contrast material: OMNI 350; Contrast volume: 100 ml; Contrast route: INTRAVENOUS (IV); COMPARISON: CT abdomen pelvis w con* [id number] 09/03/2019 2:01 PM RADIATION DOSE METRICS: Total DLP (mGy-cm): 919 FINDINGS: Tubes, catheters and devices: AICD leads partially imaged. Pleural spaces: Small bilateral pleural effusions with adjacent relaxation atelectasis. Heart: Mild cardiomegaly. Partially visualized pericardial calcification. Liver: Normal. No mass. Punctate calcified hepatic granulomas. Gallbladder and biliary ducts: Cholelithiasis. Pancreas: Normal. No ductal dilation. Spleen: Splenic calcifications. Adrenal glands: Normal. No mass. Kidneys and ureters: Normal. No hydronephrosis. Stomach and bowel: Unremarkable. No obstruction. No mucosal thickening. Sigmoid diverticulosis. Appendix: No evidence of appendicitis. Intraperitoneal space: Unremarkable. No free air. No significant fluid collection. Vasculature: Minimal atherosclerotic calcifications of the abdominal aorta. Retroaortic left renal vein, normal anatomic variant. Lymph nodes: Mild fat stranding along the mesenteric root with a few prominent mesenteric lymph nodes. Urinary bladder: Unremarkable as visualized. Reproductive: Unremarkable as visualized. Bones/joints: Advanced bilateral facet arthropathy in the lower lumbar spine. Multilevel degenerative changes of the visualized spine. Diffuse osseous demineralization. Moderate degenerative changes of bilateral hips. Soft tissues: Unremarkable. CT/CT abdomen pelvis w con* [id number] IMPRESSION: 1. No definite acute findings in the abdomen/pelvis. 2. Mild fat stranding along the mesenteric root with a few prominent mesenteric lymph nodes is nonspecific but can be seen with chronic inflammation among other etiologies. 3. Cholelithiasis without evidence of acute cholecystitis. 4. Multilevel degenerative changes of the visualized spine with advanced facet arthropathy in the mid to lower lumbar spine. 5. Small bilateral pleural effusions with adjacent relaxation atelectasis. 6. Mild cardiomegaly with partially imaged pericardial calcifications.
[2023-12-23] MEDS: iohexol 350 mg/mL 500 mL Btl (per mL) IV (17:04)
[2023-12-23] MEDS: sodium chloride 0.9% 1,000 ML 999 ML IV (18:08)
[2023-12-23 18:27] LABS: Lactic Sepsis W/Reflex 2.4 mmol/L (0.5-2.2)
[2023-12-23 18:37] LABS: Ferritin 319 ng/mL (30-400); Iron 150 ug/dL (59-158); NT Pro B Type Natriuretic Pept 2943 pg/mL (0-125)
[2023-12-23 18:54] LABS: Percent Saturation 79.3 % (20-50); Total Iron Binding Capacity 189 mcg/dl; Unsaturated Iron Binding 39 ug/dL (112-347)
[2023-12-23 19:15] LABS: Vitamin B12 150 pg/mL (232-1245)
[2023-12-23 19:48] LABS: Reflex Lactate Order REFLEX LACTIC ORDERD
--- NOTE | 2023-12-23 19:50 | PC.NURSE ---
report called to [facility] ICU. pt changed into gown. pt belongings placed into gown.
--- NOTE | 2023-12-23 20:08 | P.HP_ITS ---
Providers/Chief Complaint 2 Admitting Physician: Ilia Comer MD Primary Care Provider: Leonard Rowland MD Chief Complaint: sent by ynes main less than 7 History of Present Illness Pleasant 58-year-old gentleman with history of hypertension, CHF, cardiomyopathy status post defibrillator, CAD, LV mural thrombus, initially with report of weakness over the last week, but prescription with him and his has been having some progressive worsening weakness over the last several months, was seen in PCPs office with finding of cytopenias, severe anemia, hemoglobin 6.4, was advised to come to ER. He is also noted to have leukopenia 3.15, neutropenia with ANC 1600, thrombocytopenia 66. He is on anticoagulation with Eliquis. INR 1.78. Anemia is noted microcytic. B12 is low at 150. He is also noted taking carvedilol. She also reports having some mild intermittent chills, mild nausea, no vomiting. Review of Systems 2 Const: Reports: chills and fatigue; Denies: fever(s), body aches or malaise ENMT: Denies: throat pain Card: Denies: chest pain, edema, pre-syncope or dyspnea on exertion Resp: Denies: dyspnea, productive cough, change in phlegm color or hemoptysis GI: Reports: nausea; Denies: abdominal pain, vomiting, diarrhea, constipation, hematochezia or melena : Denies: flank pain, difficulty urinating, urinary frequency or hematuria Musc: Denies: back pain, joint swelling or joint redness Skin/Breast: Denies: rash or new lesions Neuro: Denies: headache(s) Medications/Allergies Home Medications Medication Instructions Recorded Confirmed Last Taken Type nitroglycerin 0.4 mg sublingual 0.4 mg sublingual Q5M PRN chest 10/09/22 11/18/23 Unknown Rx tablet (Nitrostat) #25 tabs apixaban 5 mg tablet (Eliquis) 5 mg PO BID #180 tabs 03/24/23 11/18/23 11/11/23 Rx sacubitril 97 mg-valsartan 103 mg 1 tab PO BID #180 tabs 04/04/23 11/18/23 11/11/23 Rx tablet simvastatin 40 mg tablet 40 mg PO QPM 11/11/23 11/18/23 11/10/23 History carvedilol 12.5 mg tablet See Rx Instructions .Route 12/15/23 Unknown Rx .COMPLEX #180 tabs Allergies Allergy/AdvReac Type Severity Reaction Status Date / Time No Known Allergies Allergy Verified 11/17/23 14:15 PFSH Acute 2 PFSH: Medical History CHF (congestive heart failure) Moderately reduced LV function not changed from the prior admissions 40% which is known to be. LV (left ventricular) mural thrombus Cardiomyopathy HTN (hypertension) CAD (coronary artery disease) Status post left heart catheterization Surgical History S/P ICD (internal cardiac defibrillator) procedure S/P wrist surgery Family History Mother CAD (coronary artery disease) unknown age of onset Cancer Father CAD (coronary artery disease) [place] 50 Cancer Lung disease Other Hypertension Denies family history of Diabetes Clotting disorder Dementia Chronic kidney disease (CKD) Suicide Anesthesia complication Bleeding disorder Stroke Social History Smoking and tobacco/nicotine status: former use of tobacco/nicotine Alcohol intake: never Substance/Drug Use: never Vitals/I&O/Wt Last Vital Signs Temp 98.0 F 12/23/23 15:53 Pulse 85 12/23/23 19:30 Resp 18 12/23/23 19:30 BP 99/57 12/23/23 19:30 Pulse Ox 100 12/23/23 19:30 O2 Del Method Room Air 12/23/23 19:30 12/23/23 12/23/23 12/23/23 06:59 14:59 22:59 Intake Total 1000 / 1000 Balance 1000 / 1000 Weight last 48 hrs Weight 100.153 kg Physical Exam 2 Narrative: Accompanied by his Const: COMMON NORMALS: patient oriented x3 and alert GENERAL APPEARANCE: c ooperative ORIENTATION/CONSCIOUSNESS: Yes awake HENMT: COMMON NORMALS: oropharynx normal Neck/C-Spine: COMMON NORMALS: no JVD Resp: COMMON NORMALS: normal respiratory effort and clear to auscultation bilaterally AUSCULTATION: clear to auscultation bilaterally Cardio: COMMON NORMALS: no JVD, regular rhythm, S1 normal heart sound present, S2 normal heart sound present and No murmurs present (Cardio) RHYTHM: regular rhythm HEART SOUNDS: S1 normal heart sound present and S2 normal heart sound present GI: COMMON NORMALS: Normal to inspection, nondistended, normoactive bowel sounds present, Soft to palpation and non-tender PALPATION: Yes Soft to palpation Extremity: COMMON NORMALS: no joint enlargement GENERAL: Yes edema (Trace) Neuro: COMMON NORMALS: patient oriented x3 and moves all extremities S ENSORIUM/ORIENTATION: Yes alert Skin: COMMON NORMALS: no rashes or lesions noted GENERAL SKIN EXAM: no rashes or lesions noted Data 12/23/23 16:15 12/23/23 16:15 A&P Assessment and plan (1) Pancytopenia: Unknown duration of pancytopenia. Severe anemia hemoglobin 6.4. Symptomatic with fatigue. Initially appeared was symptomatic for a week, however, on history obtained from his has also had other symptoms going on for close to several months, some chills, nausea. Unclear etiology of symptoms. Reviewed vitals, CBC, INR, CMP, chest x-ray, CT abdomen pelvis. Will obtain additional initial workup. Collect blood culture, tick panel. Otherwise noted hyperbilirubinemia, assess gallbladder ultrasound, but also hepatitis panel. Check HIV. Respiratory viral panel. Noted mesenteric lymphadenitis on CT. With hyperbilirubinemia, anemia, thrombocytopenia, check haptoglobin, LDH, reticulocyte panel. Peripheral smear. Assess for possible hemolysis. Check TSH. Folic acid. Possible plastic anemia secondary to carvedilol?. Hold carvedilol will discontinue at discharge. Discussed with patient and his potential adverse effect of this medication. Additionally noted B12 deficiency. Will give vitamin B12, continue supplementation. Total protein is noted low. Consider touching base with hematology tomorrow to see any additional tests they may recommend. Receiving RBC transfusion, monitor for any transfusion reaction. Additionally platelets down to 66,000, hold Eliquis for tonight, recheck blood counts, consider options with regards to anticoagulation depending on repeat counts. Has been on Eliquis with history of LV mural thrombus back in 2019. Collect hemmoccult. PPI IV BID for now although appears lower likelihood of acute GI bleed. (2) Nausea: Nonspecific symptoms, some nausea, chills over the last several months with fatigue, noted pancytopenia. Additional workup as above. Zofran as needed. (3) Chills: Some nonspecific symptoms as above. Going on on and off for several months. Check acute hepatitis panel, HIV. Check respiratory viral panel. Blood culture. TSH. Additional workup as above. Consider further assessment depending on condition and findings. (4) Hypotension: Hypotensive on presentation, hold antihypertensives, hold carvedilol, valsartan. Receiving blood transfusion. Received bolus fluid challenge. Hold off additional fluids given cardiomyopathy, history of CHF. Initial admission to intensive care unit with risk of fluid overload, CHF decompensation, pulmonary edema, respiratory failure, other complications. (5) Hyperbilirubinemia: As above. Noted cholelithiasis on CT. Obtain direct bilirubin, assess for possible hemolysis as above. Additionally assess viral hepatitis panel. Assess gallbladder ultrasound. (6) Vitamin B12 deficiency: Vitamin B12 supplementation. Plan Mesenteric lymphadenitis: Check respiratory viral panel History of LV mural thrombus: Has been on Eliquis History of systolic CHF, cardiomyopathy: Trace edema otherwise without sign of exacerbation, but is at risk with needed blood transfusion, I received fluid resuscitation due to hypotension. Monitor volume status. MURPHY. Cardiac diet. Fluid restriction 1500 mL. Hypertension: Currently hypotensive. Hold valsartan, carvedilol. CAD: Continue statin. Hold beta-lakshmi. Consider resumption of low-dose aspirin. Attestations 2 Medical Necessity Statement*: Admission of over 2 midnights anticipated for assessment management of pancytopenia of unclear origin, with systemic symptoms, severe symptomatic anemia, requiring blood transfusion, hypotension and gentleman with underlying cardiomyopathy, CHF, unknown ejection fraction previously low at 40%, with LV mural thrombus. Diagnoses Pancytopenia D61.818 Nausea R11.0 Chills R68.83 Hypotension I95.9 Hyperbilirubinemia E80.6 Vitamin B12 deficiency E53.8
--- NOTE | 2023-12-23 21:06 | US_ITS ---
WS: [id number] RIGHT UPPER QUADRANT ULTRASOUND HISTORY: hyperbilirubinemia COMPARISON: Prior CT 12/23/2023 Liver: 15.6 cm in length. Normal size liver and echogenicity. No bile duct dilatation or mass. Portal Vein: Normal hepatopetal flow with monophasic waveform. Gallbladder: Mild gallbladder hydrops. Stones and sludge in the gallbladder. Gallbladder wall is not thickened. No pericholecystic fluid. CBD: 0.5 cm Pancreas: Atrophic pancreas is not well visualized. Right kidney: 11.0 cm in length. Normal size and echogenicity. No hydronephrosis or mass. Aorta and IVC: Unremarkable abdominal aorta and IVC. Very small RIGHT pleural effusion. No ascites. US/US gall bladder [id number] IMPRESSION: 1. Mild gallbladder hydrops with sludge and cholelithiasis. No pericholecystic fluid. These findings can be seen with acute cholecystitis. 2. No bile duct dilatation. 3. Small RIGHT pleural effusion.
[2023-12-23] MEDS: sodium chloride 0.9% 100 mL Bag 50 ML IV (21:34)
[2023-12-23] MEDS: pantoprazole 40 mg SDV IVP (21:37)
[2023-12-24] VITALS (46 sets, daily range): BP systolic 88–118; BP diastolic 55–81; PULSE 66–86; RESP 13–24; TEMP 36.9–37.1; O2SAT 96–100; BMI 30.4
[2023-12-24 00:04] LABS: LAB Peripheral Smear Sent for Review
[2023-12-24 01:07] LABS: Adenovirus Not Detected (NOT DETECT); Chlamydia Pneumoniae Not Detected (NOT DETECT); Coronavirus 229E,HKU1,NL63,OC4 Not Detected (NOT DETECT); Human Metapneumovirus Not Detected (NOT DETECT); Human Rhinovirus/Enterovirus Not Detected (NOT DETECT); Influenza A Not Detected (NOT DETECT); Influenza A H1 Not Detected (NOT DETECT); Influenza A H1-2009 Not Detected (NOT DETECT); Influenza A H3 Not Detected (NOT DETECT); Influenza B Not Detected (NOT DETECT); Mycoplasma Pneumoniae Not Detected (NOT DETECT); Parainfluenza Virus Type 1 Not Detected (NOT DETECT); Parainfluenza Virus Type 2 Not Detected (NOT DETECT); Parainfluenza Virus Type 3 Not Detected (NOT DETECT); Parainfluenza Virus Type 4 Not Detected (NOT DETECT); Respiratory Syncytial Virus A Not Detected (NOT DETECT); Respiratory Syncytial Virus B Not Detected (NOT DETECT); SARS-COV-2 Not Detected (NOT DETECT)
[2023-12-24] MEDS: sodium chloride 0.9% 100 mL Bag 50 ML IV (01:14)
[2023-12-24 03:09] LABS: Eosinophils # 0.1 10^3/uL (0.0-0.8); Eosinophils % 1.9 %; Lymphocytes # 1.5 10^3/uL (0.8-4.8); Lymphocytes % 49.4 %; Mean Corpuscular HGB Conc 35.3 g/dL (30-55); Mean Corpuscular Hemoglobin 38.4 pg (27-33); Mean Corpuscular Volume 108.7 fl (82-101); Monocytes # 0.1 10^3/uL (0.2-0.9); Monocytes % 3.9 %; Neutrophils # 1.37 10^3/uL (1.8-7.7); Neutrophils % 44.5 %; Nucleated Red Blood Cells % 0 %; Platelet Count 57 10^3/cmm (157-399); Red Blood Count 2.19 10^6/uL (3.85-5.65); White Blood Count 3.08 10^3/uL (3.29-11.43)
[2023-12-24 03:11] LABS: Hematocrit 24.1 % (37-53); Retic Production Index 1.69; Reticulocyte % 2.8 % (0.5-2.0)
[2023-12-24 03:26] LABS: Lactic Acid level (Lactate) 1.1 mmol/L (0.5-2.2)
[2023-12-24 03:27] LABS: Alanine Aminotransferase 25 U/L (0-41); Albumin Level 3.5 g/dL (3.5-5.2); Alkaline Phosphatase 47 U/L (40-130); Anion Gap 13.5 (5-19); Aspartate Amino Transferase 37 U/L (0-40); Blood Urea Nitrogen 16 mg/dL (8-23); Carbon Dioxide 25 mmol/L (22-29); Chloride 107 mmol/L (98-107); Creatinine Clr Calc Pharmacy 121.2144; Globulin 1.6 g/dL (1.3-4.6); Glomerular Filtration Rate 98.6 mL/min (90-130); Glucose 92 mg/dL (65-115); Osmolality Calculated 295 mOsm/kg (285-295); Potassium 3.5 mmol/L (3.5-5.1); Sodium 142 mmol/L (136-145); Total Bilirubin 3.7 mg/dL (0.15-1.2); Total Protein 5.1 g/dL (6.6-8.7)
[2023-12-24 03:37] LABS: Thyroid Stimulating Hormone 2.02 uIU/mL (0.27-4.20)
[2023-12-24 03:46] LABS: Folate Level 12.8 ng/mL (4.5-32.2)
[2023-12-24 03:49] LABS: Hematocrit 24.1 % (37-53)
[2023-12-24 03:50] LABS: Add RBC Morph Yes; RBC Morph Comp No; Slide Review Slide Review Perform
[2023-12-24 03:51] LABS: Hepatitis B Core IgM Non-Reactive (Nonreactive); Hepatitis B Surface Antigen Non-Reactive (Nonreactive); Macrocytosis 2+; Microcytosis Trace; Poikilocytosis 1+
[2023-12-24 03:53] LABS: HIV 1 & 2 Antibody Non-Reactive (Non-Reactiv); HIV 1 & 2 Antigen Non-Reactive (Non-Reactiv)
[2023-12-24 04:10] LABS: Hepatitis C Virus Antibody Non-Reactive (Nonreactive)
[2023-12-24 04:22] LABS: Lactate Dehydrogenase 2280 U/L (135-225)
[2023-12-24 04:42] LABS: Hepatitis A Antibody IgM Non-Reactive (Nonreactive)
[2023-12-24 06:16] LABS: Charge for UA Resulting for Rev
[2023-12-24 06:20] LABS: Urine Appearance Clear (CLEAR)
[2023-12-24 06:26] LABS: Bacteria Urine None Seen /hpf; Hyaline Casts Urine 1.21 /lpf; RBC Urine 0-2 /hpf (0-2); Squamous Epithelial Cell Urine 0-5 /hpf (0-5)
[2023-12-24 06:28] LABS: Urine Color Orange (Yellow)
[2023-12-24] MEDS: cyanocobalamin 1,000 mcg/mL SDV 1000 MCG IM (09:18)
[2023-12-24] MEDS: pantoprazole 40 mg SDV IVP (09:18)
[2023-12-24 09:25] LABS: Procalcitonin 0.07 ng/mL (0-0.5)
[2023-12-24 11:26] LABS: LAB Peripheral Smear Sent for Review
[2023-12-24 11:57] LABS: LAB Peripheral Smear Sent for Review
--- NOTE | 2023-12-24 12:03 | PC.NURSE ---
[facility] transfer center calling for update.
[2023-12-24] MEDS: methylPREDNISolone sod succ 1,000 MG in sodium chloride 0.9% 250 ML 258 MG IV (13:20)
[2023-12-24 14:49] LABS: Partial Thromboplastin Time 34.5 SECONDS (23.9-36.7)
[2023-12-24] MEDS: sodium chloride 0.9% 1,000 ML 50 ML IV (15:10)
[2023-12-24 15:14] LABS: Eosinophils % 1.1 %; Lymphocytes # 1.3 10^3/uL (0.8-4.8); Lymphocytes % 45.2 %; Mean Corpuscular HGB Conc 35.4 g/dL (30-55); Mean Corpuscular Hemoglobin 38.1 pg (27-33); Mean Corpuscular Volume 107.6 fl (82-101); Monocytes # 0.1 10^3/uL (0.2-0.9); Neutrophils # 1.36 10^3/uL (1.8-7.7); Neutrophils % 48.3 %; Nucleated Red Blood Cells % 0 %; Platelet Count 50 10^3/cmm (157-399); Red Blood Count 2.23 10^6/uL (3.85-5.65); White Blood Count 2.81 10^3/uL (3.29-11.43)
[2023-12-24 16:26] LABS: Slide Review Slide Review Perform
--- NOTE | 2023-12-24 16:49 | P.PN_ITS ---
Subjective 2 Subjective: - Patient was examined earlier this morn ing -He denies any fevers, no chills, no cou gh does report weakness, no nausea, no vomiting, no abdominal pain, no bloody or black stools reported no history of GI bleeds -He does report history of tick bites, b ut he has not had one in many weeks -No recent infections, no cough, no dysu lotus or hematuria, no diarrhea -We discussed his laboratory findings wi ll have to discuss with hematology oncology I have ordered further blood work, will have a further discussion based upon further workup -Reviewed blood work with hematology onc ology haptoglobin 10, LDH over 2200, creatinine 0.8, indirect bilirubin 2, hemoglobin 8.5, platelet count 57,000, white blood cell count 3.1, -Discussed reviewing peripheral blood sm ear -BRIA ordered negative -Discussed with Dr. Cherry, peripheral s mear shows evidence of schistocytes -Given above findings, findings concerni ng for TTP with MAHA -will start on 1 gram of solumedrol -will start protonix -discussed urgent transfer for TPE, plas ma exchange -Spoke to hematology oncology at [facility], they have agreed for transfer, agreed for TPE awaiting bed, spoke to their pelt grader, awaiting bed in bed in ICU -Spoke to patient, he would want to try a hospital that is closer to home, he has family in [place] -Spoke to [facility], no beds availabl e on [facility], but I did speak to that station captain who also agreed -Spoke to [facility], no beds available -Spoke to [facility], spoke to hemat ology who agreed for transfer, spoke to their hospitalist who agreed for transfer patient has been accepted awaiting bed on stepdown -Spoke to patient he would prefer to go to [facility], I did discuss with him that he should go to the hospital that has a bed available to him the soonest, given morbidity and mortality associate with TTP, and the urgent need for total plasma exchange, he voiced understanding, all questions answered -Repeat hemoglobin 8.5, platelet count 5 0,000, white blood cell count 2.8 -He denies any bloody or black stools, n o lightheadedness no dizziness no strokelike symptoms no chest pain Vitals/I&O/Wt Last Vital Signs Temp 98.8 F 12/24/23 05:46 Pulse 71 12/24/23 14:00 Resp 17 12/24/23 14:00 BP 103/60 12/24/23 14:00 Pulse Ox 97 12/24/23 14:00 O2 Del Method Room Air 12/24/23 14:00 12/24/23 12/24/23 12/24/23 06:59 14:59 22:59 Intake Total 350 / 1700 480 / 480 Output Total 210 / 210 Balance 140 / 1490 480 / 480 Weight last 48 hrs Weight 102 kg Weight 101.786 kg Weight 100.153 kg Physical Exam 2 Const: COMMON NORMALS: no acute distress and patient oriented x3 Resp: COMMON NORMALS: normal respiratory effort, No retractions, No use of accessory muscles and clear to auscultation bilaterally AUSCULTATION: clear to auscultation bilaterally Cardio: COMMON NORMALS: regular rate, regular rhythm, S1 normal heart sound present and S2 normal heart sound present RATE: regular rate RHYTHM: r egular rhythm HEART SOUNDS: S1 normal heart sound present and S2 normal heart sound present GI: COMMON NORMALS: Normal to inspection, nondistended, normoactive bowel sounds present and non-tender Extremity: COMMON NORMALS: no pedal edema Neuro: COMMON NORMALS: patient oriented x3 Psych: COMMON NORMALS: mental status grossly normal Data 12/24/23 14:10 12/24/23 02:57 Micro: Microbiology 12/24/23 02:57 Blood Culture - Preliminary Blood SPECIMEN COLLECTED 12/24/23 02:53 Blood Culture - Preliminary Blood SPECIMEN COLLECTED A&P Assessment and plan (1) Pancytopenia: (2) Nausea: (3) Chills: (4) Hypotension: (5) Hyperbilirubinemia: (6) Vitamin B12 deficiency: (7) TTP (thrombotic thrombocytopenic purpura): (8) MAHA (microangiopathic hemolytic anemia): Plan TTP with microangiopathic hemolytic anemia -Solu-Medrol 1 g IV every 24 hours for 3 days -Protonix 40 twice daily -Awaiting bed at [facility] for TPE, this is based on patient's preference, stepdown -However he is also been septic at [facility], awaiting bed but this could take some time as he is waiting on ICU bed -Monitor hemoglobin, count closely -Continue doxycycline as there is concern for possible tick bite -Monitor closely Mesenteric lymphadenitis: Monitor History of LV mural thrombus: Has been on Eliquis, currently on hold History of systolic CHF, cardiomyopathy: Trace edema otherwise without sign of exacerbation, but is at risk with needed blood transfusion Monitor volume status. MURPHY. Cardiac diet. Fluid restriction 1500 mL. Hypertension: Hold blood pressure medications CAD: Continue statin. Hold beta-lakshmi Attestations 2 Medical Necessity Statement*: Patient requires hospitalization for TTP, microangiopathic hemolytic anemia, need for urgent transfer for TPE Diagnoses Pancytopenia D61.818 Nausea R11.0 Chills R68.83 Hypotension I95.9 Hyperbilirubinemia E80.6 Vitamin B12 deficiency E53.8 TTP (thrombotic thrombocytopenic purpura) M31.19 MAHA (microangiopathic hemolytic anemia) D59.4
[2023-12-24] MEDS: atorvastatin 40 mg Tablet 20 MG PO (17:58)
[2023-12-24] MEDS: doxycycline 100 mg Tablet PO (17:58)
[2023-12-24 18:23] LABS: Hematocrit 26.8 % (37-53); Lymphocytes # 0.4 10^3/uL (0.8-4.8); Lymphocytes % 14.1 %; Mean Corpuscular HGB Conc 35.8 g/dL (30-55); Mean Corpuscular Hemoglobin 37.8 pg (27-33); Mean Corpuscular Volume 105.5 fl (82-101); Monocytes % 1.1 %; Neutrophils # 2.39 10^3/uL (1.8-7.7); Neutrophils % 84.4 %; Nucleated Red Blood Cells % 0 %; Platelet Count 67 10^3/cmm (157-399); Red Blood Count 2.54 10^6/uL (3.85-5.65); White Blood Count 2.83 10^3/uL (3.29-11.43)
[2023-12-24 18:33] LABS: Anion Gap 15.7 (5-19); Blood Urea Nitrogen 18 mg/dL (8-23); Calcium 8.8 mg/dL (8.5-10.5); Carbon Dioxide 24 mmol/L (22-29); Chloride 102 mmol/L (98-107); Creatinine Clr Calc Pharmacy 121.3333; Glomerular Filtration Rate 98.6 mL/min (90-130); Glucose 167 mg/dL (65-115); Osmolality Calculated 292 mOsm/kg (285-295); Potassium 3.7 mmol/L (3.5-5.1); Sodium 138 mmol/L (136-145)
--- NOTE | 2023-12-24 19:01 | PC.NURSE ---
Report called to Dayanara Mera RN at [facility] in [place], [place]., 4D room 4259-2. [phone]. Per Dr. Delarosa patient can go by ground, but to transport via air if ground is not available.
[2023-12-24 19:13] LABS: Slide Review Slide Review Perform
--- NOTE | 2023-12-24 19:50 | PC.NURSE ---
This nurse called [facility] to see if they could transport the patient but they said no due to short staffing. Per day shift nurse the doctor said it was okay to fly the patient out. [facility] was called and they accepted to fly the patient out.
--- NOTE | 2023-12-24 20:35 | PC.NURSE ---
[facility] arrived for the patient at 2010. Patient was safely transported out of the ICU unit at 2019.
[2023-12-25 13:50] LABS: EBV IGM TEST <36.00 U/mL; EBV Nuclear AG <18.00 U/mL; EBV Viral Capsid AB IGM <36.00 U/mL
[2023-12-25 14:44] LABS: Lyme AB Screen <0.90 index
[2023-12-28 15:33] LABS: E. Chaffeensis AB IGG <1:64; E. Chaffeensis AB IGM <1:20
[2023-12-28 23:10] LABS: RMSF IGG NOT DETECTED; RMSF IGM NOT DETECTED
--- NOTE | 2023-12-30 11:36 | PM.TDS ---
Transfer Summary Providers Date of Admission: 12/23/23 19:02 Date of Discharge/Transfer: 12/30/23 Attending Provider at Admission: Ilia Comer MD Attending Provider at Transfer: Dusty Delarosa MD Primary Care Provider: Leonard Rowland MD Transfer Plans: Anticipated date of transfer: 12/30/23. Diagnoses at Discharge Discharge Diagnosis (1) Pancytopenia: Status: Acute (2) Nausea: Status: Acute (3) Chills: Status: Acute (4) Hypotension: Status: Acute (5) Hyperbilirubinemia: Status: Acute (6) Vitamin B12 deficiency: Status: Acute (7) TTP (thrombotic thrombocytopenic purpura): Status: Acute (8) MAHA (microangiopathic hemolytic anemia): Status: Acute Reason for Visit Reason for Visit sent by ynes main less than 7 Hospital Course Hospital Course eddy 58-year-old gentleman with history of hypertension, CHF, cardiomyopathy status post defibrillator, CAD, LV mural thrombus, initially with report of weakness over the last week, but prescription with him and his has been having some progressive worsening weakness over the last several months, was seen in PCPs office with finding of cytopenias, severe anemia, hemoglobin 6.4, was advised to come to ER. He is also noted to have leukopenia 3.15, neutropenia with ANC 1600, thrombocytopenia 66. He is on anticoagulation with Eliquis. INR 1.78. Anemia is noted microcytic. B12 is low at 150. He is also noted taking carvedilol. She also reports having some mild intermittent chills, mild nausea, no vomiting. Patient was examined earlier this morning -He denies any fevers, no chills, no cough does report weakness, no nausea, no vomiting, no abdominal pain, no bloody or black stools reported no history of GI bleeds -He does report history of tick bites, but he has not had one in many weeks -No recent infections, no cough, no dysuria or hematuria, no diarrhea -We discussed his laboratory findings will have to discuss with hematology oncology I have ordered further blood work, will have a further discussion based upon further workup -Reviewed blood work with hematology oncology haptoglobin 10, LDH over 2200, creatinine 0.8, indirect bilirubin 2, hemoglobin 8.5, platelet count 57,000, white blood cell count 3.1, -Discussed reviewing peripheral blood smear -BRIA ordered negative, -Discussed with Dr. Cherry, peripheral smear shows evidence of schistocytes -Thrombotic thrombocytopenic purpura and microangiopathic hemolytic anemia -Given above findings, findings concerning for TTP with MAHA -Given life-threatening nature of diagnosis, patient will need urgent total plasma exchange, that can only be done at tertiary level center, discussed transfer to tertiary level center with patient, he is agreeable -will start on 1 gram of solumedrol -will start protonix -discussed urgent transfer for TPE, plasma exchange, giving life-threatening nature of TTP -Spoke to hematology oncology at [facility], Spoke to geography head accepted transfer, spoke to newspaper copy editor accepted transfer, they have agreed for transfer, urgent need for TPE, agreed for TPE awaiting bed, spoke to their newspaper copy editor, awaiting bed in bed in ICU -Spoke to patient, he would want to try a hospital that is closer to home, he has family in [place] -Spoke to [facility], no beds available on [facility], but I did speak to that geography head who also agreed -Spoke to [facility], no beds available -Spoke to [facility], spoke to hematology who agreed for transfer, spoke to their hospitalist who agreed for transfer patient has been accepted awaiting bed on stepdown -Spoke to patient he would prefer to go to [facility], I did discuss with him that he should go to the hospital that has a bed available to him the soonest, given morbidity and mortality associate with TTP, and the urgent need for total plasma exchange, he voiced understanding, all questions answered -Repeat hemoglobin 8.5, platelet count 50,000, white blood cell count 2.8 -He denies any bloody or black stools, no lightheadedness no dizziness no strokelike symptoms no chest pain TTP with microangiopathic hemolytic anemia -Solu-Medrol 1 g IV every 24 hours for 3 days -Protonix 40 twice daily -Awaiting bed at [facility] for TPE, this is based on patient's preference, stepdown -However he is also been septic at [place], awaiting bed but this could take some time as he is waiting on ICU bed -Monitor hemoglobin, count closely -Continue doxycycline as there is concern for possible tick bite -Monitor closely Mesenteric lymphadenitis: Monitor History of LV mural thrombus: Has been on Eliquis, currently on hold History of systolic CHF, cardiomyopathy: Trace edema otherwise without sign of exacerbation, but is at risk with needed blood transfusion Monitor volume status. MURPHY. Cardiac diet. Fluid restriction 1500 mL. Hypertension: Hold blood pressure medications CAD: Continue statin. Hold beta-lakshmi -Patient seen in the afternoon, alert oriented x 3, following all commands, no bloody black stools, no bleeding, no lightheadedness, no nausea, no vomiting, patient has been accepted at [facility] in [place], he has a bed available, agreeable to transfer, transfer to [facility] for TTP, life-threatening nature of diagnosis, need for TPE Physical Exam Const: COMMON NORMALS: no acute distress and patient oriented x3 Resp: COMMON NORMALS: normal respiratory effort, No retractions, No use of accessory muscles and clear to auscultation bilaterally AUSCULTATION: clear to auscultation bilaterally Cardio: COMMON NORMALS: regular rate, regular rhythm, S1 normal heart sound present and S2 normal heart sound present RATE: regular rate RHYTHM: regular rhythm HEART SOUNDS: S1 normal heart sound present and S2 normal heart sound present GI: COMMON NORMALS: Normal to inspection, nondistended, normoactive bowel sounds present and non-tender Extremity: COMMON NORMALS: no pedal edema Neuro: COMMON NORMALS: patient oriented x3 Psych: COMMON NORMALS: mental status grossly normal TS Data Studies Completed and Pending Completed Studies During Hospitalization Category Date Time Status CT abdomen pelvis w con* 14300 Stat Cat Scan 12/23/23 16:51 Completed CXRP [XR chest 1V portable 12089] Stat Exams 12/23/23 16:36 Completed US gall bladder 24014 Routine Ultrasound 12/23/23 21:06 Completed Laboratory Last Values WBC 2.83 10^3/uL (3.29-11.43) L 12/24/23 18:07 RBC 2.54 10^6/uL (3.85-5.65) L 12/24/23 18:07 Hgb 9.60 g/dL (11.27-16.99) L 12/24/23 18:07 Hct 26.8 % (37-53) L 12/24/23 18:07 MCV 105.5 fl (82-101) H 12/24/23 18:07 MCH 37.8 pg (27-33) H 12/24/23 18:07 MCHC 35.8 g/dL (30-55) 12/24/23 18:07 RDW Not Reportable 12/24/23 18:07 Plt Count 67 10^3/cmm (157-399) L D 12/24/23 18:07 MPV Not Reportable 12/24/23 18:07 Neut % (Auto) 84.4 % 12/24/23 18:07 Lymph % (Auto) 14.1 % 12/24/23 18:07 [place] % (Auto) 1.1 % 12/24/23 18:07 Eos % (Auto) 0.0 % 12/24/23 18:07 Baso % (Auto) 0.0 % 12/24/23 18:07 Reticulocyte % (Auto) 2.8 % (0.5-2.0) H 12/24/23 02:57 Neut # (Auto) 2.39 10^3/uL (1.8-7.7) 12/24/23 18:07 Lymph # (Auto) 0.4 10^3/uL (0.8-4.8) L 12/24/23 18:07 [place] # (Auto) 0.0 10^3/uL (0.2-0.9) L 12/24/23 18:07 Eos # (Auto) 0.0 10^3/uL (0.0-0.8) 12/24/23 18:07 Baso # (Auto) 0.0 10^3/uL (0.0-0.1) 12/24/23 18:07 Nucleated RBC % (auto) 0 % 12/24/23 18:07 Nucleated RBCs # 0.0 /100WBC 12/24/23 18:07 Poikilocytosis 1+ H 12/24/23 02:57 Microcytosis Trace 12/24/23 02:57 Macrocytosis 2+ H 12/24/23 02:57 Peripher Smr Path Cons Sent for review 12/24/23 02:57 Peripher Smr Path Cons Sent for review 12/24/23 02:57 Retic Production Index 1.69 12/24/23 02:57 Haptoglobin 10.0 mg/L (30-200) L 12/24/23 02:57 PT 21.30 SECONDS (12.1-14.9) H 12/23/23 16:15 INR 1.78 (0.8-1.2) H 12/23/23 16:15 APTT 34.5 SECONDS (23.9-36.7) 12/24/23 14:10 Sodium 138 mmol/L (136-145) 12/24/23 18:07 Potassium 3.7 mmol/L (3.5-5.1) 12/24/23 18:07 Chloride 102 mmol/L (98-107) 12/24/23 18:07 Carbon Dioxide 24 mmol/L (22-29) 12/24/23 18:07 Anion Gap 15.7 (5-19) 12/24/23 18:07 BUN 18 mg/dL (8-23) 12/24/23 18:07 Creatinine 0.8 mg/dL (0.7-1.2) 12/24/23 18:07 GFR Calculation 98.6 mL/min (90-130) 12/24/23 18:07 Glucose 167 mg/dL (65-115) H 12/24/23 18:07 Calculated Osmolality 292 mOsm/kg (285-295) 12/24/23 18:07 Lactic Acid 2.4 mmol/L (0.5-2.2) H 12/23/23 17:57 Lactic Acid (Sepsis) 1.1 mmol/L (0.5-2.2) 12/24/23 02:57 Calcium 8.8 mg/dL (8.5-10.5) 12/24/23 18:07 Iron 150 ug/dL (59-158) 12/23/23 17:57 TIBC 189 mcg/dl 12/23/23 17:57 % Saturation 79.3 % (20-50) H 12/23/23 17:57 Unsat Iron Binding 39 ug/dL (112-347) L 12/23/23 17:57 Ferritin 319 ng/mL (30-400) 12/23/23 17:57 Total Bilirubin 3.7 mg/dL (0.15-1.2) H 12/24/23 02:57 Direct Bilirubin 0.80 mg/dL (0.00-0.30) H 12/24/23 02:57 AST 37 U/L (0-40) 12/24/23 02:57 ALT 25 U/L (0-41) 12/24/23 02:57 Alkaline Phosphatase 47 U/L (40-130) 12/24/23 02:57 Lactate Dehydrogenase 2280 U/L (135-225) H 12/24/23 02:57 C-Reactive Protein 3.0 mg/L (0.0-4.9) 12/24/23 02:37 NT-Pro-B Natriuret Pep 2943 pg/mL (0-125) H 12/23/23 17:57 Total Protein 5.1 g/dL (6.6-8.7) L 12/24/23 02:57 Albumin 3.5 g/dL (3.5-5.2) 12/24/23 02:57 Globulin 1.6 g/dL (1.3-4.6) 12/24/23 02:57 Vitamin B12 150 pg/mL (232-1245) L 12/23/23 16:15 Folate 12.8 ng/mL (4.5-32.2) 12/24/23 02:57 Procalcitonin 0.07 ng/mL (0-0.5) 12/24/23 02:37 TSH 2.02 uIU/mL (0.27-4.20) 12/24/23 02:57 Urine Color [place] (Yellow) A 12/24/23 06:00 Urine Appearance Clear (CLEAR) 12/24/23 06:00 Urine pH Not Reportable 12/24/23 06:00 Ur Specific [place] Not Reportable 12/24/23 06:00 Urine Protein Not Reportable 12/24/23 06:00 Urine Glucose (UA) Not Reportable 12/24/23 06:00 Urine Ketones Not Reportable 12/24/23 06:00 Urine Blood Not Reportable 12/24/23 06:00 Urine Nitrate Not Reportable 12/24/23 06:00 Urine Bilirubin Not Reportable 12/24/23 06:00 Urine Urobilinogen Not Reportable 12/24/23 06:00 Ur Leukocyte Esterase Not Reportable 12/24/23 06:00 Urine RBC 0-2 /hpf (0-2) 12/24/23 06:00 Urine WBC 6-10 /hpf (0-5) 12/24/23 06:00 Ur Squamous Epith Cells 0-5 /hpf (0-5) 12/24/23 06:00 Amorphous Sediment Not Reportable 12/24/23 06:00 Urine Bacteria None seen /hpf (NONE) 12/24/23 06:00 Hyaline Casts 1.21 /lpf 12/24/23 06:00 Adenovirus (PCR) Not detected (NOT DETECT) 12/23/23 23:08 Lyme Ab (Western Blot) <0.90 index 12/24/23 02:57 C. pneumoniae DNA (PCR) Not detected (NOT DETECT) 12/23/23 23:08 Coronavirus 229E (PCR) Not detected (NOT DETECT) 12/23/23 23:08 E. chaffeensis IgG Ab <1:64 12/24/23 02:57 E. chaffeensis IgM Ab <1:20 12/24/23 02:57 E. chaffeensis Interp See note 12/24/23 02:57 E. chaffeensis Comment Not Reportable 12/24/23 02:57 EBV IgG Ab 101.00 U/mL H 12/24/23 02:57 EBV IgM Ab <36.00 U/mL 12/24/23 02:57 EBV Capsid Ag IgG, IgM <36.00 U/mL 12/24/23 02:57 EBV Nuclear Antigen <18.00 U/mL 12/24/23 02:57 EBV Interpretation See note 12/24/23 02:57 Hepatitis A IgM Ab Non-reactive (Nonreactive) 12/24/23 02:57 Hep Bs Antigen Non-reactive (Nonreactive) 12/24/23 02:57 Hep B Core IgM Ab Non-reactive (Nonreactive) 12/24/23 02:57 Hepatitis C Antibody Non-reactive (Nonreactive) 12/24/23 02:57 HIV 1&2 Ab & HIV 1 Ag Non-reactive (Non-Reactiv) 12/24/23 02:57 HIV 1&2 Antibody Non-reactive (Non-Reactiv) 12/24/23 02:57 Human Metapneumovir PCR Not detected (NOT DETECT) 12/23/23 23:08 Influenza A (H1) PCR Not detected (NOT DETECT) 12/23/23 23:08 Influ A (H1/09) PCR Not detected (NOT DETECT) 12/23/23 23:08 Influenza A (H3) PCR Not detected (NOT DETECT) 12/23/23 23:08 Influenza Type A (PCR) Not detected (NOT DETECT) 12/23/23 23:08 Influenza Type B (PCR) Not detected (NOT DETECT) 12/23/23 23:08 M. pneumoniae (PCR) Not detected (NOT DETECT) 12/23/23 23:08 Parainfluenza 1 (PCR) Not detected (NOT DETECT) 12/23/23 23:08 Parainfluenza 2 (PCR) Not detected (NOT DETECT) 12/23/23 23:08 Parainfluenza 3 (PCR) Not detected (NOT DETECT) 12/23/23 23:08 Parainfluenza 4 (PCR) Not detected (NOT DETECT) 12/23/23 23:08 RSV Type A (PCR) Not detected (NOT DETECT) 12/23/23 23:08 RSV Type B (PCR) Not detected (NOT DETECT) 12/23/23 23:08 Entero/Rhino (PCR) Not detected (NOT DETECT) 12/23/23 23:08 Rickettsia IgG Ab Not detected 12/24/23 02:57 Rickettsia IgM Ab Not detected 12/24/23 02:57 SARS-CoV-2 (PCR) Not detected (NOT DETECT) 12/23/23 23:08 Blood Type A Positive 12/23/23 16:15 Rho(D) Type Rh positive 12/23/23 16:15 Antibody Screen Negative 12/23/23 16:15 BRIA, Poly Interpret Negative 12/24/23 02:57 Crossmatch See Detail 12/23/23 16:15 Radiology Impressions Chest X-Ray 12/23/23 16:36 IMPRESSION: No acute findings. Abdomen/Pelvis CT 12/23/23 16:51 IMPRESSION: 1. No definite acute findings in the abdomen/pelvis. 2. Mild fat stranding along the mesenteric root with a few prominent mesenteric lymph nodes is nonspecific but can be seen with chronic inflammation among other etiologies. 3. Cholelithiasis without evidence of acute cholecystitis. 4. Multilevel degenerative changes of the visualized spine with advanced facet arthropathy in the mid to lower lumbar spine. 5. Small bilateral pleural effusions with adjacent relaxation atelectasis. 6. Mild cardiomegaly with partially imaged pericardial calcifications. Gallbladder Ultrasound 12/23/23 21:06 IMPRESSION: 1. Mild gallbladder hydrops with sludge and cholelithiasis. No pericholecystic fluid. These findings can be seen with acute cholecystitis. 2. No bile duct dilatation. 3. Small RIGHT pleural effusion. Recent Clincial Data Last Vital Signs Temp 98.8 F 12/24/23 05:46 Pulse 75 12/24/23 20:27 Resp 18 12/24/23 20:27 BP 102/72 12/24/23 20:27 Pulse Ox 99 12/24/23 20:27 O2 Del Method Room Air 12/24/23 18:00 Vitals Last Vital Signs Temp 98.8 F 12/24/23 05:46 Pulse 75 12/24/23 20:27 Resp 18 12/24/23 20:27 BP 102/72 12/24/23 20:27 Pulse Ox 99 12/24/23 20:27 O2 Del Method Room Air 12/24/23 18:00 TS Medications Medications Discontinued Medications Acetaminophen (Acetaminophen 325 Mg Tablet) 650 mg PO Q6H PRN PRN Reason: Mild/Mod Pain Or Temp >/= 101 Atorvastatin Calcium (Atorvastatin 40 Mg Tablet) 20 mg PO QPM [facility] Last Admin: 12/24/23 17:58 Dose: 20 mg Cyanocobalamin (Cyanocobalamin 1,000 Mcg/Ml Sdv) 1,000 mcg IM DAILY PHI Stop: 12/29/23 08:59 Last Admin: 12/24/23 09:18 Dose: 1,000 mcg Doxycycline Monohydrate (Doxycycline 100 Mg Tablet) 100 mg PO BID [facility]; Protocol Last Admin: 12/24/23 17:58 Dose: 100 mg Sodium Chloride (Sodium Chloride 0.9%) 1,000 mls @ 999 mls/hr IV .Q1H1M ONE Stop: 12/23/23 17:19 Last Infusion: 12/23/23 18:09 Dose: Infused Methylprednisolone Sodium Succinate 1,000 mg/ Sodium Chloride 258 mls @ 258 mls/hr IV Q24H [facility] Last Infusion: 12/24/23 16:56 Dose: Infused Sodium Chloride (Sodium Chloride 0.9%) 1,000 mls @ 50 mls/hr IV .Q20H [facility] Last Admin: 12/24/23 15:10 Dose: 50 mls/hr Iohexol (Iohexol 350 Mg/Ml 500 Ml Btl (Per Ml)) 0 ml IV ONCE ONE Stop: 12/23/23 17:04 Last Admin: 12/23/23 17:04 Dose: 100 ml Ondansetron HCl (Ondansetron 2 Mg/Ml Sdv 2 Ml) 4 mg IVP Q8H PRN PRN Reason: vomiting, or N/V if npo Pantoprazole Sodium (Pantoprazole 40 Mg Sdv) 40 mg IVP Q12H [facility]I Last Admin: 12/24/23 09:18 Dose: 40 mg Sodium Chloride (Sodium Chloride 0.9% 100 Ml Bag) 50 ml IV PRN PRN PRN Reason: Blood transfusion prime and flush Stop: 12/24/23 16:35 Last Admin: 12/24/23 01:14 Dose: 50 ml Allergies No Known Allergies Allergy (Verified 11/17/23 14:15) Home Medications nitroglycerin 0.4 mg sublingual tablet (Nitrostat) 0.4 mg sublingual Q5M PRN chest #25 tabs 10/09/22 [Rx Confirmed 12/24/23] sacubitril 97 mg-valsartan 103 mg tablet 1 tab PO BID #180 tabs 04/04/23 [Rx Confirmed 12/24/23] simvastatin 40 mg tablet 40 mg PO QPM 11/11/23 [History Confirmed 12/24/23] carvedilol 12.5 mg tablet See Rx Instructions .Route .COMPLEX #180 tabs 12/15/23 [Rx Confirmed 12/24/23] apixaban 5 mg tablet (Eliquis) 5 mg PO BID #180 tabs 12/29/23 [Rx] Discharge Plan Discharge Condition: Stable Prescriptions: No Action sacubitril-valsartan 97-103 mg tablet 1 tab PO BID Qty: 180 3RF nitroglycerin [Nitrostat] 0.4 mg tablet, sublingual 0.4 mg SUBLINGUAL Q5M PRN (Reason: chest) Qty: 25 4RF carvedilol 12.5 mg tablet See Rx Instructions .ROUTE .COMPLEX Qty: 180 2RF Dose Instruction: TAKE 1 TABLET BY MOUTH TWICE DAILY WITH MEAL AND FOOD Rx Instructions: TAKE 1 TABLET BY MOUTH TWICE DAILY WITH MEAL AND FOOD Eliquis 5 mg tablet 5 mg PO BID Qty: 180 3RF simvastatin 40 mg tablet 40 mg PO QPM Discharge Orders: Discharge Order (Routine); Ordered 12/24/23 Ordered By: Dusty Delarosa Referrals: Leonard Rowland MD [Primary Care Provider] - Discharge Diet: Cardiac Transfer Attestations Time Spent in Transfer Care: critical care time Critical Care Time (min): 60 Status at Transfer: Behavioral status at transfer: cooperative; Quality Metrics Clinical Quality Measures [ No reported AMI, CVA or VTE this stay] Coding Level of Care Code Critical Care >/= 30 minutes Critical care time (in minutes): 60 The high probability of a clinically significant, sudden or life threatening deterioration, as referenced in this documentation, required my full and direct attention, intervention and personal management. The critical care time shown is in addition to time spent performing any reported separately billable procedures and includes the following: [x] Data and vital sign review and interpretation [x] Patient assessment, examination and intervention [x] Medication orders and management [x] Patient/Family updates as able [x] Care Coordination and Documentation. Other Coding Information Diagnosis of TTP, with microangiopathic hemolytic anemia, life-threatening diagnosis, urgently transferred to [facility] for plasma exchange, spoke to Dr. Cherry, spoke to [place] hematology oncology, spoke to [place] newspaper copy editor, spoke to [facility] hematology oncology, spoke to [facility] team, accepted transfer, patient was seen multiple times throughout the day Diagnoses Pancytopenia D61.818 Nausea R11.0 Chills R68.83 Hypotension I95.9 Hyperbilirubinemia E80.6 Vitamin B12 deficiency E53.8 TTP (thrombotic thrombocytopenic purpura) M31.19 MAHA (microangiopathic hemolytic anemia) D59.4
== END 2023-12-24 20:20 | disposition short-term general hospital (02) | DRG 546 ==
LOC: ER 19:01 → ICU 19:03
PROVIDERS: Internal Medicine; Admitting Provider Internal Medicine; Emergency Provider Emergency Medicine; PCP Family Medicine; Visit Provider Family Medicine
DX: M31.19 Other thrombotic microangiopathy (principal); D61.818 Other pancytopenia; I42.9 Cardiomyopathy, unspecified; I88.0 Nonspecific mesenteric lymphadenitis; D50.9 Iron deficiency anemia, unspecified; I11.0 Hypertensive heart disease with heart failure; I50.9 Heart failure, unspecified; I25.10 Atherosclerotic heart disease of native coronary artery without angina pectoris; D70.9 Neutropenia, unspecified; I95.9 Hypotension, unspecified; E80.6 Other disorders of bilirubin metabolism; E53.8 Deficiency of other specified B group vitamins; Z95.810 Presence of automatic (implantable) cardiac defibrillator; Z79.02 Long term (current) use of antithrombotics/antiplatelets; Z11.52 Encounter for screening for COVID-19; Z87.891 Personal history of nicotine dependence
CPT/HCPCS: 36415; 36430; 71045; 74177; 76705; 80048; 80053; 80074; 80503; 81003; 81015; 82248; 82607; 82728; 82746; 83010; 83540; 83550; 83605; 83615; 83880; 84145; 84443; 85014; 85025; 85045; 85610; 85730; 86140; 86618; 86664; 86665; 86666; 86757; 86850; 86880; 86900; 86920; 87040; 87486; 87581; 87633; 87806; 93005; 96360; 96361; 96372; 99285; J2470; J2919; J3420; J7030; J7050; P9016; Q9967

== ENCOUNTER → 2024-01-26 15:28 | Outpatient (BNVA) | payer BC, SELFPAY | PROVIDERS: PCP Family Medicine; Visit Provider Family Medicine | DX: Z51.81 Encounter for therapeutic drug level monitoring (principal); D64.9 Anemia, unspecified; D61.818 Other pancytopenia | CPT/HCPCS: 80053; 80503; 82248; 83615; 85025; 86141 ==

== ENCOUNTER → 2024-08-25 14:17 | Outpatient (BNVA) | payer BC, SELFPAY | PROVIDERS: PCP Family Medicine; Visit Provider Internal Medicine Cardiovascular Disease | DX: D64.9 Anemia, unspecified (principal); I95.9 Hypotension, unspecified; I50.22 Chronic systolic (congestive) heart failure; I10 Essential (primary) hypertension | CPT/HCPCS: 36415; 80053; 85025 ==